=== PATIENT | female | born 1950 | race Caucasian/White ===

== ENCOUNTER → 2020-12-10 08:19 | Outpatient (CLI) | payer MEDICARE, SELFPAY ==
--- NOTE | ~2020-12-10 | MMUS_ITS ---
EXAMINATION: MM diagnostic catarina BI w carlos, US breast LT limited HISTORY: Mastodynia TECHNIQUE: Craniocaudal, mediolateral, and mediolateral oblique 3-D tomosynthesis images of the breas ts were performed and synthetic 2-D images were generated. CAD analysis was submitted and interpreted . High resolution limited left breast ultrasound was performed. COMPARISON: 11/29/2019, 09/21/2018, 09/15/2017 BREAST PARENCHYMAL COMPOSITION: There are scattered areas of fibroglandular density. FINDINGS: MAMMOGRAPHIC FINDINGS: There is no evidence of suspicious mass, calcification, or architectural distortion in either breast to suggest malignancy. There has been no suspicious interval change. No mammographic correlate is id entified for the patient's reported left breast pain. ULTRASOUND: There is no evidence of focal abnormal solid or cystic lesion in the vicinity of the area of the kirsten ent's left breast pain. IMPRESSION: 1. No specific mammographic or sonographic correlate is identified for the patient's left breast pain Further evaluation at this time should be based on clinical assessment. Continued follow-up physical examination is recommended. 2. Recommend routine screening mammography in one year. BI-RADS Category 1: Negative Reviewed, dictated and finalized at location A. GRINDER IMPRESSION: 1. No specific mammographic or sonographic correlate is identified for the kirsten ent's left breast pain Further evaluation at this time should be based on clini elizabeth assessment. Continued follow-up physical examination is recommended. 2. Recommend routine screening mammography in one year. BI-RADS Category 1: Negative
== END ==
PROVIDERS: Visit Provider Obstetrics & Gynecology
DX: N64.4 Mastodynia (principal)
CPT/HCPCS: 76642; 77062; 77066; G0279

== ENCOUNTER 2021-09-23 12:24 | Emergency (ER) | payer MEDICARE, SELFPAY ==
--- NOTE | 2021-09-23 12:27 | ED.EYEPROB ---
HPI - Eye Problem General Chief complaint: Eye Problems Stated complaint: Right Eye Pain Time Seen by Provider: 09/23/21 12:27 Source: patient and RN notes reviewed History of Present Illness HPI Narrative: Patient is a 71-year-old female who presents the urgent care with complaints of redness, drainage and swelling to the right eye. Patient states that it started on Wednesday and worsened on Wednesday. Patient has used [id number] drops without improvement. Denies of any trauma, injury to the eye. Denies of any vision changes. States that she does wear glasses but denies the use of contacts. No other acute complaints. No acute distress noted. Patient aware of the plan of care. Some parts of this dictation were generated by voice recognition software and may contain typographical and/or grammatical inaccuracies. Related Data Allergies Allergy/AdvReac Type Severity Reaction Status Date / Time vaccine adjuvant system, Allergy Intermediate Swelling Verified 06/19/19 06:40 AS01B liposomal varicella-zoster virus Allergy Intermediate Swelling Verified 06/19/19 06:40 glycoprotein E, recombinant Review of Systems Review of Systems: CONSTITUTIONAL: Denies fever, chills, or sweats. EYES: Reports of redness, swelling and drainage from the right eye without vision change ENT: Denies rhinorrhea, congestion, sore throat, or otalgia. CARDIOVASCULAR: Denies chest pain, palpitations, or edema. RESPIRATORY: Denies cough or dyspnea. GASTROINTESTINAL: Denies abdominal pain, nausea, vomiting, or diarrhea. GENITOURINARY: Denies dysuria or hematuria. SKIN: Denies rash or itching. MUSCULOSKELETAL: Denies back pain, joint pain, or myalgia. NEUROLOGIC: Denies headache, numbness, or weakness. All other systems reviewed are negative, except as documented in HPI. [facility] Family History Family History (Updated 09/20/18 @ 10:47 by DOCTOR UNKNOWN) Mother Family history of malignant neoplasm of cervix Family history of malignant neoplasm of ovary Social History Social History Smoking status: Never smoker Second hand tobacco smoke exposure: No Alcohol intake: current Comments At the time of my signature, I reviewed and agree with the nursing past medical, surgical, social, and family history. There is no relevant family history pertinent to the patient complaint. Exam Narrative: GENERAL: This is a well-nourished, well-developed patient, in no apparent distress. HEAD: normocephalic, atraumatic. EYES: PERRL. Sclera clear/white. Vision is grossly intact. Mild to moderate injected conjunctive on the right with clear to yellow drainage. Mild surrounding erythema and slight edema to the lower eyelid of the right eye. Appears to have a draining hordeolum external to the right lower eyelid EARS: External ears normal NOSE: External nose normal with no obvious nasal discharge, nares without redness, no rhinorrhea. THROAT: Mucous membranes moist NECK: Neck supple CARDIOVASCULAR: Regular rate and rhythm without murmurs, gallops, or rubs. RESPIRATORY: Clear to auscultation. Breath sounds equal bilaterally. No wheezes, rales, or rhonchi. SKIN: warm, intact with no suspicious lesions or rash, good texture and turgor. NEURO: awake, alert, and oriented to person, place and time. There were no obvious focal neurologic abnormalities. EXTREMITIES: No clubbing, cyanosis, or edema. Course Vital Signs Vital signs: Vital Signs Temperature 97.7 F 09/23/21 12:35 Pulse Rate 85 09/23/21 12:35 Respiratory Rate 16 09/23/21 12:35 Blood Pressure 156/84 H 09/23/21 12:35 Pulse Oximetry 99 09/23/21 12:35 Temperature 97.7 F 09/23/21 12:40 Pulse Rate 85 09/23/21 12:40 Respiratory Rate 16 09/23/21 12:40 Blood Pressure 156/84 H 09/23/21 12:40 Pulse Oximetry 99 09/23/21 12:40 Reviewed-patient is informed that they may have pre-hypertension or hypertension based on a blood pressure reading in the department. I recommend
[2021-09-23 12:35] VITALS: BP 156/84; PULSE 85; RESP 16; TEMP 36.5; O2SAT 99
[2021-09-23 12:40] VITALS: BP 156/84; PULSE 85; RESP 16; TEMP 36.5; O2SAT 99
== END 2021-09-23 12:48 | disposition home or self-care (01) ==
PROVIDERS: Emergency Provider Nurse Practitioner Family; PCP Family Medicine
DX: L03.213 Periorbital cellulitis (principal); H00.012 Hordeolum externum right lower eyelid
CPT/HCPCS: 99213; G0463

== ENCOUNTER 2022-01-19 13:30 | Outpatient (RCR) | payer MEDICARE, SELFPAY ==
--- NOTE | 2021-11-28 10:49 | PTOPEVAL ---
Thank you for referring Jerrica Ramos to [facility].? The patient is scheduled to be seen for therapy? 2 x/week for 6 weeks. Please review, sign, date and return this plan of care DARWIN. I agree with and certify that the following plan of care is medically necessary. Referring Physician Date Attending Provider: Niurka Byers MD Diagnosis left hip pain Onset 04/28 Cause fall Subjective Information She had a fall April 2021 Query Text:As Reported By Patient/ landing on her left side. She Family reports her left leg is not moving out to the side as normally due to pain and restrictions. She reports limitations with ADL's, squatting to end range, movement of left hip, negotiating steps, prolonged sitting or moving in bed. She is trying to stretch to improve range, walking with good weather, or plays golf. Pain Assessment Left Hip(s) Reported Pain Level 0 Pain Description Aching,Tightness Pain Frequency Chronic Lowest Pain Intensity 0 Greatest Pain Intensity 5 Pain Aggravating Factors ADL's,Bending,Prolonged Position,Sitting,Stair Climbing Lower Extremity Range of Motion General Lower Extremity Range of Motion Gross Lower Extremity Range of Motion right hip abd: 35 dg, left hip Comments abd: 20 dg Lower Extremity Muscle Strength Testing General Lower Extremity Strength Gross Lower Extremity Strength right hip flex: 3/5, hip ext: 4/5, abduction: 3/5 Hip Strength Left Hip Flexion Strength 3 Fair Hip Extension Strength 4- Good - Hip Abduction Strength 3+ Fair + Knee Strength Left Knee Flexion Strength 5 Normal Knee Extension Strength 4+ Good + Muscle Length Testing Two-Joint Hip Flexor Shortened Muscles Short (R) Iliopsoas,Short (L) Iliopsoas,Short (R) Rectus Femoris,Short (L) Rectus Femoris Piriformis w/Hip Flexion >90 Degrees (R) Mild Tightness,(L) Severe Tightness Right Prone Hip Internal Rotator Length 30 (degrees) Left Prone Hip Internal Rotator Length ( 15 degrees) Right Prone Hip External Rotator Length 50 (degrees) Left Prone Hip External Rotator Length ( 50 degrees) Left Hamstring Length
--- NOTE | 2021-12-29 11:53 | PTOPEVAL ---
Physical Therapy Progress Note Thank you for referring Jerrica Ramos to [facility].? Jerrica is progressing towards her therapy goals with improved pain, strength and joint motion. See summary below for detailed progress. The patient is scheduled to be seen for therapy?2 x/week for 3 weeks. Please review, sign, date and return this plan of care DARWIN. I agree with and certify that the following plan of care is medically necessary. Referring Physician Date Attending Provider: Niurka Byers MD Problem Diagnosis left hip pain Onset 04/28 Cause fall Additional Evaluation Detail She had a fall April 2021 landing on her left side. Subjective Information Reports improved hip range and Query Text:As Reported By Patient/ ability to bring leg up for Family donning shoes. She is able to get in/out of the car better. Improved ability to squating to end range and negoitating steps. She has been limited with her distance walking due to weather. She has tried yoga classes, but has difficulty with some of the moves. Pain Assessment Left Hip(s) Reported Pain Level 1 Pain Description Aching Lowest Pain Intensity 0 Greatest Pain Intensity 4 Pain Aggravating Factors ADL's,Bending,Exercise/ Activity,Stair Climbing Lower Extremity Range of Motion General Lower Extremity Range of Motion Gross Lower Extremity Range of Motion right hip abd: 35 dg, left hip Comments abd: 30 dg passive left hip flex: 120 dg Lower Extremity Muscle Strength Testing General Lower Extremity Strength Gross Lower Extremity Strength right hip flex: 4+/5, hip ext: 4+/5, abduction: 3+/5 Hip Strength Left Hip Flexion Strength 4+ Good + Hip Extension Strength 4+ Good + Hip Abduction Strength 4- Good - Knee Strength Left Knee Flexion Strength 5 Normal Knee Extension Strength 5 Normal Muscle Length Testing Muscle Length Testing Two-Joint Hip Flexor Shortened Muscles Short (R) Iliopsoas,Short (L) Iliopsoas,Short (R) Rectus Femoris,Short (L) Rectus Femoris,Short (R) Ilial Tib Band,Short (L) Ilial Tib Band Right Prone Hip Internal Rotator Length 25 (degrees) Left Prone Hip Internal Rotator Length ( 20 degrees) Palpation Assessment Palpation cont moderate to severe
--- NOTE | 2022-01-02 12:06 | PCPTNOTE ---
Patient called to cancel appointment this date due to weather related concern.
--- NOTE | 2022-01-19 14:23 | PTOPEVAL ---
Physical Therapy Discharge Summary Thank you for referring Jerrica Ramos to [facility].?Jerrica has attended 14 therapy visits to address hip pain and LE limitations. She demonstrates improved pain, function, strength and joint motion. She has partially achieved her therapy goals at this time. She has reached maximal potential with skilled therapy services at this time. Will DC skilled PT services. Please review, sign, date and return this discharge summary DARWIN. I agree with and certify that the following plan of care is medically necessary. Referring Physician Date Attending Provider: Niurka Byers MD Diagnosis left hip pain Onset 04/28 Cause fall Additional Evaluation Detail She had a fall April 2021 landing on her left side. Subjective Information Reports improved hip range Query Text:As Reported By Patient/ for donning shoes with only Family mild discomfort. She is able to get in/out of the car easier without increased pain. Improved ability to squating to end range and negoitating steps. Squatting and steps are more limited by knee pain. She has been able to [place] walking without limitations. She is preston yoga without increased pain. Pain Assessment Left Hip(s) Reported Pain Level 0 Pain Description Aching,Tightness Lowest Pain Intensity 0 Greatest Pain Intensity 1 Pain Aggravating Factors ADL's,Stair Climbing Lower Extremity Range of Motion General Lower Extremity Range of Motion Gross Lower Extremity Range of Motion right hip abd: 35 dg, left hip Comments abd: 30 dg Lower Extremity Muscle Strength Testing General Lower Extremity Strength Gross Lower Extremity Strength right hip flex: 4-/5, hip ext: 4+/5, abduction: 3+/5 Hip Strength Left Hip Flexion Strength 4- Good - Hip Extension Strength 4+ Good + Hip Abduction Strength 4- Good - Knee Strength Left Knee Flexion Strength 5 Normal Knee Extension Strength 5 Normal Muscle Length Testing Muscle Length Testing Two-Joint Hip Flexor Shortened Muscles Short (R) Iliopsoas,Short (L) Iliopsoas,Short (R) Rectus Femoris,Short (L) Rectus Femoris,Short (R) Ilial Tib Band,Short (L) Ilial Tib Band Piriformis w/Hip Flexion >90 Degrees (R) Mild Tightness,(L) Moderate Tightness Right Prone Hip Internal Rotator Length 20 (degrees) Left Prone Hip Internal Rotator Length (
== END 2022-01-20 11:12 | disposition home or self-care (01) ==
LOC: ANHPT 13:30
PROVIDERS: PCP Family Medicine; Visit Provider Family Medicine
DX: M25.552 Pain in left hip (principal)
CPT/HCPCS: 97110; 97112; 97162

== ENCOUNTER 2022-07-06 09:26 | Outpatient (CLI) | payer MEDICARE, SELFPAY ==
--- NOTE | ~2022-07-06 | MM_ITS ---
EXAMINATION: MM screening catarina BI w carlos HISTORY: Screening mammogram, family history of breast cancer in her sister. TECHNIQUE: Craniocaudal and mediolateral oblique 3-D tomosynthesis images were obtained and synthetic 2-D images were generated. CAD analysis was submitted and interpreted. COMPARISON: 12/10/2020, 11/27/2019, 09/11/2018 BREAST PARENCHYMAL COMPOSITION: There are scattered areas of fibroglandular density. FINDINGS: RIGHT BREAST: There is a possible mass in the posterior third of the lower inner breast. LEFT BREAST: There is no suspicious mass, calcification, or architectural distortion to suggest malig xavi. There has been no significant interval change. IMPRESSION: 1. Possible right breast mass. 2. Additional mammographic views and possible breast ultrasound are recommended. BI-RADS Category 0: Incomplete: Needs additional imaging evaluation. Reviewed, dictated and finalized at location A. IMPRESSION: 1. Possible right breast mass. 2. Additional mammographic views and possible breast ultrasound are recommended . BI-RADS Category 0: Incomplete: Needs additional imaging evaluation.
== END 2022-07-06 09:27 | disposition home or self-care (01) ==
LOC: ANHIMG 09:29
PROVIDERS: PCP Family Medicine; Visit Provider Obstetrics & Gynecology
DX: Z12.31 Encounter for screening mammogram for malignant neoplasm of breast (principal); R92.8 Other abnormal and inconclusive findings on diagnostic imaging of breast
CPT/HCPCS: 77063; 77067

== ENCOUNTER → 2022-08-05 09:41 | Outpatient (CLI) | payer MEDICARE, SELFPAY ==
--- NOTE | ~2022-08-05 | DEXA_ITS ---
Bone Density Report Name: KRANTHI JONES Age: 71 Sex: Female Ethnicity: White Date of : 1950 Indication: postmenopausal; screening for osteoporosis; height loss; Referring Provider: Rosi Flanagan Study: Bone densitometry was performed. Exam Date: August 05, 2022 Accession number: [id number] Bone Density: Region BMD T-score Z-score Classification AP Spine (L1-L4) 0.804 -2.2 0.0 Osteopenia Femoral Neck (Left) 0.566 -2.6 -0.7 Osteoporosis Total Hip (Left) 0.759 -1.5 0.1 Osteopenia Femoral Neck (Right) 0.581 -2.4 -0.6 Osteopenia Total Hip (Right) 0.796 -1.2 0.4 Osteopenia Total Hip Mean 0.778 -1.4 0.3 Osteopenia World Health Organization criteria for BMD impression classify patients as: Normal (T-score at or above -1.0), Osteopenia (T-score between -1.0 and -2.5), or Osteoporosis (T-score at or below -2.5). 10-year Fracture Risk: FRAX not reported because: Some T-score for Spine Total or Hip Total or Femoral Neck at or below -2.5 Clinical Information Provided by Patient: Has used the following medications: Vitamin D Patient maximum height was 61.5 Menopause Age: 56 Drinks caffeinated beverages Onset of menses at age 13 Number of children 4 Impression: The patient has osteoporosis, based on the Left Femoral Neck T-score. Discussion: INCREASED RISK OF FRACTURE. BONE DENSITY IS UNDESIRABLY LOW AT ONE OR MORE SKELETAL SITES, CONSISTENT WITH POSTMENOPAUSAL OSTEOPOROSIS. This patient's lowest T-score meets the World Health Organization's (WHO) criteria for osteoporosis at one or more sites (T-score -2.5 or below). In untreated patients, the risk of osteoporotic fracture increases approximately two-fold for each 1.0 SD decrease in T-score. Low bone density is not the only risk factor for fracture; also consider factors such as patient's age, frailty or poor health, risk of falling, risk of injury, previous osteoporotic fracture, family history of osteoporosis, cigarette smoking, low body weight, etc. Not everyone with low bone mineral density has osteoporosis; osteomalacia and other metabolic bone disorders should also be considered. Patients who have osteoporosis should be evaluated for specific diseases and conditions (secondary causes) that may cause or contribute to bone loss. The [place] [employer]ocrinologists (AACE) and National Osteoporosis Foundation (NOF) recommend pharmacologic intervention for all postmenopausal women whose T-score is in this range. The patient should follow a healthful lifestyle (good nutrition with adequate calcium and vitamin D, and appropriate weight-bearing exercise). Follow-Up: Consider a repeat BMD and Vertebral Fracture Assessment (VFA) exam in 2 years or sooner if medically necessary, to reassess this patient's status. Reported by: SARAH castorena
== END ==
PROVIDERS: PCP Family Medicine; Visit Provider Obstetrics & Gynecology
DX: Z78.0 Asymptomatic menopausal state (principal); M85.89 Other specified disorders of bone density and structure, multiple sites; M81.0 Age-related osteoporosis without current pathological fracture
CPT/HCPCS: 77080

== ENCOUNTER 2022-08-11 12:19 | Outpatient (CLI) | payer MEDICARE, SELFPAY ==
--- NOTE | ~2022-08-11 | MMUS_ITS ---
EXAMINATION: MM diagnostic catarina RT w carlos, US breast RT limited HISTORY: Possible right breast mass TECHNIQUE: Additional 3-D tomosynthesis images of the right breast were performed and synthetic 2-D i mages were generated. CAD analysis was submitted and interpreted. High resolution limited right breas t ultrasound was performed. COMPARISON: 07/06/2022, 12/10/2020, 11/29/2019 BREAST PARENCHYMAL COMPOSITION: There are scattered areas of fibroglandular density. FINDINGS: MAMMOGRAPHIC FINDINGS: There is subtle architectural distortion in the middle/posterior third of the breast at the 4:00 loca tion 8 cm from the nipple. ULTRASOUND: There is no evidence of focal abnormal solid or cystic mass in the vicinity of the finding in questio n. IMPRESSION: 1. Right breast architectural distortion without definite sonographic correlate. 2. Given the subtle appearance on 2-D images, tomosynthesis guided biopsy is recommended. BI-RADS category 4, suspicious findings. Reviewed, dictated and finalized at location A. IMPRESSION: 1. Right breast architectural distortion without definite sonographic correlate . 2. Given the subtle appearance on 2-D images, tomosynthesis guided biopsy is re commended. BI-RADS category 4, suspicious findings.
== END 2022-08-11 12:20 | disposition home or self-care (01) ==
PROVIDERS: PCP Family Medicine; Visit Provider Obstetrics & Gynecology
DX: R92.8 Other abnormal and inconclusive findings on diagnostic imaging of breast (principal)
CPT/HCPCS: 76642; 77061; 77065; G0279

== ENCOUNTER 2025-05-31 05:46 | Day surgery (SDC) | payer MEDICARE, SELFPAY ==
[2025-05-23 08:13] VITALS: BMI 25.6
--- OUTSIDE RECORDS SUMMARY | 2025-05-31 06:05 | XMS_ITS | Encounter Summary ---
Author Organization [facility] Healthcare Address [address] [place] [address] Care Team Providers Care Slot Key Person Name Role Phone Saurabh Izaguirre MD Primary Care Provider [phone]- [phone] Reason for Visit * Diagnostic Imaging (Routine) - Closed Specialty Diagnoses / Procedures Referred By Jamie jenkins Referred To Contact Procedures Breast Imaging Diagnostic Outside Reference Breast Imaging Screening Outside Reference Irina Aguiar NP Phone: tel: fax: Referral ID Status Reason Start Date Expiration Date Visits Re quested Visits Authorized [id number] Closed 09/04/2022 10/04/2023 1 1 Encounter Details Date Type Department Care Team (Late st Contact Info) Description 12/10/2020 Hospital Encounter [facility] [address] [place] [id number] Social History Tobacco Use Types Packs/Day Years Used Date Smoking Tobacco: Never Smokeless Tobacco: Never Alcohol Use Standard Drinks/Week Comments Yes 0 (1 standard drink = 0.6 oz pur e alcohol) Social Connection and Isolat ion Panel [NHANES] Answer Date Recorded In a typical week, how many times do you talk on the phone with family, friends, or neighbors? More than three times a week 08/05/2023 How often do you get togethe r with friends or relatives? Twice a week 08/05/2023 How often do you attend [facility] or jainism services? More than 4 times per year 08/05/2023 Do you belong to any clubs o r organizations such as jainism groups, unions, fraternal or athletic groups, or school groups? Yes 08/05/2023 How often do you attend meet ings of the clubs or organizations you belong to? More than 4 times per year 08/05/2023 Are you , , di vorced, , never , or living with a partner? 08/05/2023 AUDIT-C Answer Date Recorded Q1: How often do you have a drink containing alc ohol? 2-4 times a month 11/04/2022 Q2: How many drinks containi ng alcohol do you have on a typical day when you are drinking? 1 or 2 11/04/2022 Q3: How often do you have si x or more drinks on one occasion? Never 11/04/2022 Overall Financial Resource Strain (CARDIA) Answe r Date Recorded How hard is it for you to pa y for the very basics like food, housing, medical care, and heating? Not very hard 08/05/2023 PHQ-2 Answer Date Recorded Patient Health Questionnaire-2 Score 0 08/05/2023 [facility] - Occupational Stress Questionnaire Answer Date Recorded Do you feel stress - tense, restless, nervous, or anxious, or unable to sleep at night because your mind is troubled all the time - these days? Only a little 08/05/2023 Exercise Vital Sign Answer Date Recorde d On average, how many days pe r week do you engage in moderate to strenuous exercise (like a brisk walk)? 2 days 08/05/2023 On average, how many minutes do you engage in exercise at this level? 40 min 08/05/2023 Hunger Vital Sign Answer Date Recorded Within the past 12 months, y ou worried that your food would run out before you got the money to buy more. Never true 08/05/20 23 Within the past 12 months, t he food you bought just didn't last and you didn't have money to get more. Never true 08/05/2023 PRAPARE - Transportation Answer Date Re corded In the past 12 months, has l ack of transportation kept you from medical appointments or from getting medications? No 07/10 In the past 12 months, has l ack of transportation kept you from meetings, work, or from getting things needed for daily living? No 08/05/2023 Housing Stability Vital Sign Answer Demetri e Recorded In the last 12 months, was t here a time when you were not able to pay the mortgage or rent on time? No 08/05/2023 In the last 12 months, how many places have you lived? 1 08/05/2023 In the last 12 months, was t here a time when you did not have a steady place to sleep or slept in a care home (including now)? No 08/05/2023 Comments Unknown Sex and Gender Information Value Date Recorded Sex Assigned at Not on file Legal Sex Female 3:26 AM DIRECTOR DERMATOLOGY Gender Identity Not on file Sexual Orientation Not on file documented as of this encounter Functional Status * Audit-C Score Answer Date of Assessment Author 2 11/04/2022 7:20 AM DIRECTOR DERMATOLOGY Monica Allen RN * Question Answer Date of Assessment Author Q1: How often do you have a drink containing alcohol? 2-4 times a month 11/04/2022 7:20 AM DIRECTOR DERMATOLOGY Emily Allen RN Q2: How many drinks containing alcohol do you have on a typical day when you are drinking? 1 or 2 11/04/2022 7:20 AM DIRECTOR DERMATOLOGY Emily Allen RN Q3: How often do you have six or more drinks on one occasion? Never 11/04/2022 7:20 AM DIRECTOR DERMATOLOGY Emily Allen RN * Over the past 2 weeks, how often have you been bothered by any of the following problems? Question Answer Date of Assessment Author Patient Health Questionnaire-2 Score 0 08/05/2023 10:15 AM CDT Interface, Amb ulatory Doc Flowsheet In * Little interest or pleasure in doing things Answer Date of Assessment Author Not at all 08/05/2023 10:15 AM CDT Interfac e, Ambulatory Doc Flowsheet In * Feeling down, depressed, or hopeless Answer Date of Assessment Author Not at all 08/05/2023 10:15 AM CDT Interfac e, Ambulatory Doc Flowsheet In documented as of this encounter Plan of Treatment Not on file documented as of this encounter Procedures Procedure Name Priority Date/Time Associated Diagnosis Comments BREAST IMAGING MG DIAGNOSTIC OUTSIDE REFERENCE Routine 12/10/2020 12:00 AM DIRECTOR DERMATOLOGY documented in this encounter Results * Breast Imaging Diagnostic Outside Reference (12/10/2020 12:00 AM DIRECTOR DERMATOLOGY) Anatomical Region Laterality Modality Breast Mammography Impressions 09/04/2022 12:50 PM CDT These images are for Reference purposes only and have not been reviewed by [facility] Radiology. There will be no report generated by a [facility] Radiologist. Narrative 09/04/2022 12:50 PM CDT EXAMINATION: Images For Reference Purposes Only Irina Aguiar WHEELCHAIR RENTAL CLERK IMG MAMMO PROCEDURES [place] [facility] Result - Final documented in this encounter Visit Diagnoses Not on filedocumented in this encounter Care Teams Slot Key Person Relationship Specialty Start Date End Date Saurabh Izaguirre MD [address] [place] [address] PCP - General 03/05/15 05/27/22 documented as of this encounter
--- OUTSIDE RECORDS SUMMARY | 2025-05-31 06:05 | XMS_ITS | Encounter Summary ---
Author Organization [facility] Healthcare Address [address] [place] [address] Care Team Providers Care Aquatic Life Laborer Name Role Phone Saurabh Izaguirre MD Primary Care Provider [phone]- [phone] Reason for Visit * Diagnostic Imaging (Routine) - Closed Specialty Diagnoses / Procedures Referred By Jamie jenkins Referred To Contact Procedures Breast Imaging Screening Outside Reference Irina Aguiar NP Phone: tel: fax: Referral ID Status Reason Start Date Expiration Date Visits Re quested Visits Authorized [id number] Closed 09/04/2022 10/04/2023 1 1 Encounter Details Date Type Department Care Team (Late st Contact Info) Description 11/29/2019 Hospital Encounter [facility] [address] [place] [id number] Social History Tobacco Use Types Packs/Day Years [...] week 08/05/2023 How often do you attend [facility] or scientologist services? More than 4 times per year 08/05/2023 Do you belong to any clubs o r organizations such as faith groups, unions, fraternal or athletic groups, or [...] Recorded Patient Health Questionnaire-2 Score 0 08/05/2023 [facility] - Occupational Stress [...] place to sleep or slept in a retirement (including now)? No 08/05/2023 Comments Unknown Sex and Gender Information Value Date Recorded Sex Assigned at Not on file Legal Sex Female 3:26 AM MOTHER BABY RN Gender Identity Not on file Sexual Orientation Not on file documented as of this encounter Functional Status * Audit-C Score Answer Date of Assessment Author 2 11/04/2022 7:20 AM MOTHER BABY RN Monica Allen RN * Question Answer Date of Assessment Author Q1: How often do you have a drink containing alcohol? 2-4 times a month 11/04/2022 7:20 AM MOTHER BABY RN Emily Allen RN Q2: How many drinks containing alcohol do you have on a typical day when you are drinking? 1 or 2 11/04/2022 7:20 AM MOTHER BABY RN Emily Allen RN Q3: How often do you have six or more drinks on one occasion? Never 11/04/2022 7:20 AM MOTHER BABY RN Emily Allen RN * Over the past [...] Date/Time Associated Diagnosis Comments BREAST IMAGING MG SCREENING OUTSIDE REFERENCE Routine 11/29/2019 12:00 AM MOTHER BABY RN documented in this encounter Results * Breast Imaging Screening Outside Reference (11/29/2019 12:00 AM MOTHER BABY RN) Impressions [facility] - 09/04/2022 12:49 PM CDT These images are for Reference purposes only and have not been reviewed by [facility] Radiology. There will be no report generated by a [facility] Radiologist. Narrative [facility] - 09/04/2022 12:49 PM CDT EXAMINATION: Images For Reference Purposes Only us Irina Aguiar SHALE PLANER OPERATOR IMG MAMMO PROCEDURES Fin al Result [facility] documented in this encounter Visit Diagnoses Not on filedocumented in this encounter Care Teams Aquatic Life Laborer Relationship Specialty Start Date End Date Saurabh Izaguirre MD [address] [place] [address] PCP - General 03/05/15 05/27/22 documented as of this encounter
--- OUTSIDE RECORDS SUMMARY | 2025-05-31 06:06 | XMS_ITS | Encounter Summary ---
Author Organization [facility] Healthcare Address [address] [place] [address] Care Team Providers Care Packing Machine Operator Name Role Phone Saurabh Izaguirre MD Primary Care Provider +1- [phone] Reason for Visit * Diagnostic Imaging (Routine) - Closed Specialty Diagnoses / Procedures Referred By Jamie jenkins Referred To Contact Procedures Breast Imaging Screening Outside Reference Irina Aguiar NP Phone: tel: fax: Referral ID Status Reason Start Date Expiration Date Visits Re quested Visits Authorized [id number] Closed 09/04/2022 10/04/2023 1 1 Encounter Details Date Type Department Care Team (Late st Contact Info) Description 07/27/2016 Hospital Encounter [facility] [address] [place] [id number] Social History Tobacco Use Types Packs/Day Years [...] week 08/05/2023 How often do you attend [facility] or samaritan services? More than 4 times per year 08/05/2023 Do you belong to any clubs o r organizations such as synagogue groups, unions, fraternal or athletic groups, or [...] Recorded Patient Health Questionnaire-2 Score 0 08/05/2023 [facility] - Occupational [...] place to sleep or slept in a [facility] (including now)? No 08/05/2023 Comments Unknown Sex and Gender Information Value Date Recorded Sex Assigned at Not on file Legal Sex Female 3:26 AM EXTRUSION DIE REPAIR MANAGER Gender Identity Not on file Sexual Orientation Not on file documented as of this encounter Functional Status * Audit-C Score Answer Date of Assessment Author 2 11/04/2022 7:20 AM EXTRUSION DIE REPAIR MANAGER Monica Allen RN * Question Answer Date of Assessment Author Q1: How often do you have a drink containing alcohol? 2-4 times a month 11/04/2022 7:20 AM EXTRUSION DIE REPAIR MANAGER Emily Allen RN Q2: How many drinks containing alcohol do you have on a typical day when you are drinking? 1 or 2 11/04/2022 7:20 AM EXTRUSION DIE REPAIR MANAGER Emily Allen RN Q3: How often do you have six or more drinks on one occasion? Never 11/04/2022 7:20 AM EXTRUSION DIE REPAIR MANAGER Emily Allen RN * Over the past [...] BREAST IMAGING MG SCREENING OUTSIDE REFERENCE Routine 07/27/2016 12:00 AM CDT documented in this encounter Results * Breast Imaging Screening Outside Reference (07/27/2016 12:00 AM CDT) Impressions [facility] - 09/04/2022 12:40 PM CDT These images are for Reference purposes only and have not been reviewed by [facility] Radiology. There will be no report generated by a [facility] Radiologist. Narrative [facility] - 09/04/2022 12:40 PM CDT EXAMINATION: Images For Reference Purposes Only us Irina Aguiar WAREHOUSE ASSISTANT IMG MAMMO PROCEDURES Fin al Result [facility] documented in this encounter Visit Diagnoses Not on filedocumented in this encounter Care Teams Packing Machine Operator Relationship Specialty Start Date End Date Saurabh Izaguirre MD [address] [place] [address] PCP - General 03/05/15 05/27/22 documented as of this encounter
--- OUTSIDE RECORDS SUMMARY | 2025-05-31 06:06 | XMS_ITS | Referral Summary ---
Author Organization [facility] [address] Address [address] [place] [id number] Care Team Providers Care Accessibility Lift Technician Name Role Phone Niurka Byers MD Primary Care Provider [phone] Rosi Flanagan MD Unavailable [phone] Edward Medina MD Unavailable Janet Shaikh MD PhD Unavaila ble Areli Michel MD Unavailable [phone] Encounters Date Type Department Care Team Description 03/15/2025 2:30 PM CDT Office Visit [facility] Radiation Oncology [address] [place] [phone] Areli Michel MD 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 breast of female, estrogen receptor positive (HCC) (Primary Dx) from Last 3 Months Allergies No known active allergies Medications alendronate (FOSAMAX) 70 mg tablet Take 1 tablet (70 mg total) by mouth once a week 08/31/2022 Active calcium carbonate-vitami n D3 2,500 mg (1,000 mg elemental)-800 unit tablet Take by mouth Active anastrozole (ARIMIDEX) 1 mg tabletIndication s: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 breast of female, estrogen receptor positive (HCC) TAKE 1 TABLET(1 MG) BY MOUTH DAILY 90 tablet 3 04/03/2025 Active Active Problems Problem Noted Date Diagnosed Date Encounter for follow-up exam ination after completed treatment for malignant neoplasm 02/03/2023 Personal history of malignant neoplasm of breast 02/03/2023 Personal history of irradiation 02/03/2023 keno terminal operator current use of aromatase inhibitor Malignant neoplasm of right female breast 2021 Cancer Staging:Pathologic stage from 11/04/2022: pT1b, pN0(sn), cM0, ER+, MO-, HER2- - Unsigned Overview (10/22/2022): Added automatically from request for surgery [id number] Abnormal mammogram 09/23/2022 Hyperlipidemia 03/05/2015 Overview (02/18/2017): Hyperlipidemia Immunizations Immunization Administration Dates Next Due Influenza, Quadrivalent, Spl it, Preservative Free, Intramuscular 11/18/2013 Influenza, Trivalent, IM (MDV) 09/05/2012 TD Preservative Free 08/13/2011,04/25/2002 ZOSTER LIVE 11/22/2012 Social History Tobacco Use Types Packs/Day Years Used Date Smoking Tobacco: Never Smokeless Tobacco: Never Tobacco Cessation:Counseling Given: Not Answered Alcohol Use Standard Drinks/Week Comments Yes 0 [...] week 08/05/2023 How often do you attend chur ch or synagogue services? More than 4 times per year 08/05/2023 Do you belong to any clubs o r organizations such as moravian groups, unions, fraternal or athletic groups, or [...] Recorded Patient Health Questionnaire-2 Score 0 08/05/2023 [facility] - Occupational Stress Questionnaire Answer Date Recorded [...] place to sleep or slept in a mcfp (including now)? No 08/05/2023 Comments Unknown Sex and Gender Information Value Date Recorded Sex Assigned at Not on file Legal Sex Female 3:26 AM SVP OF DIGITAL Gender Identity Not on file Sexual Orientation Not on file Last Filed Vital Signs Vital Sign Reading Time Taken Comments Blood Pressure 151/61 03/15/2025 2:28 PM CDT Pulse 82 03/15/2025 2:28 PM CDT Temperature 36.5 C (97.7 F) 03/15/2025 2:28 PM CDT Respiratory Rate 18 03/15/2025 2:28 PM CDT Oxygen Saturation 98% 03/15/2025 2:28 PM CDT Inhaled Oxygen Concentration - - Weight 61.9 kg (136 lb 8 oz) 03/15/2025 2:28 PM CDT Height 152.4 cm (5') 02/15/2025 2:52 PM CDT Body Mass Index 26.66 02/15/2025 2:52 PM CDT Plan of Treatment Not on file Medical Devices Implanted Type Area Water Treatment Technician Device Identifier Shelf Expiration Date Model / Serial / Lot [employer] Needle Localization Bad Axe Nitinol Stainless Steel J Curve L10cm Od20 Ga Breast Reposition 2 Part Stabilizer Wire Sterile Disposable [id number] - [id number] Implanted:Qty: 1 on 11/04/2022 at [facility] Wire [employer] [id number] 09/24/2025 [id number] / / [id number] Bard Per[employer] V[employer] Ultraclip Bard 17ga 10cm 2 Trigger Permanent Ultrasound [id number] - [id number] Implanted:Qty: 1 on 09/23/[address] [facility] Right: Breast [employer] [id number] / / Procedures Procedure Name Priority Date/Time Associated Diagnosis Comments DEXA AXIAL SKELETON BONE DENSITY 1 OR MORE SITES Schedule Routine, Read Routine (OP Routine) 08/01/2024 10:14 AM CDT 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 breast of female, estrogen receptor positive (HCC) keno terminal operator (current) use of aromatase inhibitors DIAGNOSTIC MAMMOGRAM BILATERAL W DANNY Schedule Routine, Read Routine (OP Routine) 06/22/2024 3:00 PM CDT History of partial mastectomy of right breast 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 breast of female, estrogen receptor positive (HCC) Abnormal mammogram Mass of right breast, unspecified quadrant Hx of lymph node excision from Last 3 Months or Most Recently Relevant to Health Maintenance Results * Dexa Axial Skeleton Bone Density 1 or 2 Site (08/01/2024 10:14 AM CDT) Anatomical Region Laterality Modality Body N/A Other 08/01/2024 7:43 PM CDT Narrative 08/01/2024 7:44 PM CDT EXAM DESCRIPTION: DEXA AXIAL SKELETON BONE DENSITY 1 OR MORE SITES REASON FOR STUDY: 73 y/o year old F with given history of: keno terminal operator AI use Screening Hx of right breast cancer 2021 Hx of radiation therapy and currently takes anastrozole Post menopausal Water Treatment Technician/Model: Location SL (S/N [id number]) CLINICAL INFORMATION: Current height: 61 inches Maximum height: 61 inches Weight: 132 pounds Risk factors: Postmenopausal, secondary osteoporosis, cancer COMPARISON: None available FINDINGS: AP LUMBAR SPINE L1-L4: Total BMD is 0.797 g/cm2 T-score is -2.3 LEFT HIP: Total BMD is 0.734 g/cm2 T-score is -1.7 Femoral neck BMD is 0.534 g/cm2 T-score is -2.8 FRAX: FRAX not reported due to T-scores of hip, femoral neck and/or spine being at or below -2.5 (Osteoporosis). IMPRESSION: Osteoporosis. REFERENCE: Bone mineral density: T-Score: Normal (T-score above or = -1.0) Low bone mass (T-score between -1.0 and -2.5) replaces the previously used term osteopenia Osteoporosis (T-score = or below -2.5) Z-Score: Within the expected range for age (Z-score above -2.0) Below the expected range for age (Z-score is -2.0 or below) Please see below follow up recommendations. Medical evaluation for secondary causes of low bone mineral density may be appropriate. FRAX is a World Health Organization validated fracture risk assessment tool that calculates a person's 10 year probability of a major osteoporosis related fracture and hip fracture. According to the National Osteoporosis Foundation guidelines, postmenopausal women and men age 50 or older with low bone mass and a 10 year probability of a major osteoporosis related fracture = or greater than 20% or a 10 year probability of a hip fracture = or greater than 3% should be considered for pharmacological treatment for the prevention of osteoporosis. For further information, including treatment recommendations, please refer to the 2019 ISCD Official Positions (http://www.iscd.org) and the NOF's Clinician's Guide to Prevention and Treatment of Osteoporosis (http://www.nof.org/professionals/clinical-guidelines) THIS IS AN ELECTRONICALLY VERIFIED FINAL REPORT 08/01/2024 7:44 PM - Electronically signed by Brendan Tello M.D. MF: MARIA Report ID: [id number] Reading Location: [place] [address] Procedure Note Brendan Tello MD - 08/01/2024 EXAM DESCRIPTION: DEXA AXIAL SKELETON BONE DENSITY 1 OR MORE SITES REASON FOR STUDY: 73 y/o year old F with given history of: Long termAI use Screening Hx of right breast cancer 2021 Hx of radiation therapy and currently takes anastrozole Post menopausal Water Treatment Technician/Model: Location SL (S/N [id number]) CLINICAL INFORMATION: Current height: 61 inches Maximum height: 61 inches Weight: 132 pounds Risk factors: Postmenopausal, secondary osteoporosis, cancer COMPARISON: None available FINDINGS: AP LUMBAR SPINE L1-L4: Total BMD is 0.797 g/cm2 T-score is -2.3 LEFT HIP: Total BMD is 0.734 g/cm2 T-score is -1.7 Femoral neck BMD is 0.534 g/cm2 T-score is -2.8 FRAX: FRAX not reported due to T-scores of hip, femoral neck and/or spine beingat or below -2.5 (Osteoporosis). IMPRESSION: Osteoporosis. REFERENCE: Bone mineral density: T-Score: Normal (T-score above or = -1.0) Low bone mass (T-score between -1.0 and -2.5) replaces thepreviously used term osteopenia Osteoporosis (T-score = or below -2.5) Z-Score: Within the expected range for age (Z-score above -2.0) Below the expected range for age (Z-score is -2.0 or below) Please see below follow up recommendations. Medical evaluation forsecondary causes of low bone mineral density may be appropriate. FRAX is a World Health Organization validated fracture risk assessmenttool that calculates a person's 10 year probability of a major osteoporosisrelated fracture and hip fracture. According to the National OsteoporosisFoundation guidelines, postmenopausal women and men age 50 or older with low bonemass and a 10 year probability of a major osteoporosis related fracture = or greater than 20% or a 10 year probability of a hip fracture = or greaterthan 3% should be considered for pharmacological treatment for the preventionof osteoporosis. For further information, including treatment recommendations, please referto the 2019 ISCD Official Positions (http://www.iscd.org) and the NOF's Clinician's Guide to Prevention and Treatment of Osteoporosis (http://www.nof.org/professionals/clinical-guidelines) THIS IS AN ELECTRONICALLY VERIFIED FINAL REPORT 08/01/2024 7:44 PM - Electronically signed by Brendan Tello M.D. MF: MARIA Report ID: [id number] Reading Location: [place] [address] Edward Medina MD IMG DXA PROCEDURE S Final Result * Diagnostic Mammogram Bilateral W Danny (06/22/2024 3:00 PM CDT) Anatomical Region Laterality Modality Breast Bilateral Mammography 06/22/2024 3:57 PM CDT Impressions 06/22/2024 3:59 PM CDT 1. No mammographic evidence of malignancy in bilateral breasts. 2. Post surgical changes of right partial mastectomy. OVERALL FINAL ASSESSMENT: BI-RADS Category 2: Benign. RECOMMENDATION: Annual diagnostic mammography is recommended. Dictated by: Tyler Porter D.O. The radiology attending physician has personally reviewed this study, and had reviewed and/or edited this written report and agrees with it. Electronically signed by: Pema Mchugh M.D. Narrative 06/22/2024 3:59 PM CDT EXAMINATION: BILATERAL DIGITAL DIAGNOSTIC MAMMOGRAM INCLUDING CAD AND BILATERAL DIGITAL BREAST TOMOSYNTHESIS HISTORY: 73-year-old female presents for screening diagnostic mammogram status post right breast breast conservation therapy. Patient has a history of right breast invasive ductal carcinoma. COMPARISON: Mammograms 06/17/2023 and dating back to 2014 TECHNIQUE: Full field digital mammographic views of BOTH breasts were performed, including computer aided detection (CAD) and BILATERAL digital breast tomosynthesis (DBT). BREAST PARENCHYMAL COMPOSITION: There are scattered areas of fibroglandular density. MAMMOGRAM FINDINGS: There is no mass, calcification or architectural distortion suggestive of malignancy within EITHER breast. Post surgical changes of right partial mastectomy. Procedure Note Pema Mchugh MD - 06/22/2024 EXAMINATION: BILATERAL DIGITAL DIAGNOSTIC MAMMOGRAM INCLUDING CAD AND BILATERAL DIGITAL BREAST TOMOSYNTHESIS HISTORY: 73-year-old female presents for screening diagnostic mammogram status post right breast breast conservation therapy. Patient has a history of right breast invasive ductal carcinoma. COMPARISON: Mammograms 06/17/2023 and dating back to 2014 TECHNIQUE: Full field digital mammographic views of BOTH breasts were performed, including computer aided detection (CAD) and BILATERAL digital breast tomosynthesis (DBT). BREAST PARENCHYMAL COMPOSITION: There are scattered areas of fibroglandular density. MAMMOGRAM FINDINGS: There is no mass, calcification or architectural distortion suggestive of malignancy within EITHER breast. Post surgical changes of right partial mastectomy. IMPRESSION: 1. No mammographic evidence of malignancy in bilateral breasts. 2. Post surgical changes of right partial mastectomy. OVERALL FINAL ASSESSMENT: BI-RADS Category 2: Benign. RECOMMENDATION: Annual diagnostic mammography is recommended. Dictated by: Tyler Porter D.O. The radiology attending physician has personally reviewed this study, and had reviewed and/or edited this written report and agrees with it. Electronically signed by: Pema Mchugh M.D. Janet Shaikh MD PhD IMG MAMMO PROCEDURES Final Result from Last 3 Months or Most Recently Relevant to Health Maintenance Insurance [employer] SENIOR SUPPLEMENT MEDICARE MEDICARE A[employer] SENIOR SUPPLEMENT MEDICARE AET[employer] SENIOR SUPPLEMENT Care Teams Accessibility Lift Technician Relationship Specialty Start Date End Date Niurka Byers MD PCP - General Family Medicine 05/28/22 Rosi Flanagan MD Referring Physician Obstetrics and Gynecology 08/12/22 Edward Medina MD [address] [facility], [address] [address] Consulting Physician Medical Oncology 11/20/22 Janet Shaikh MD PhD [address] [place] [address] Surgeon Surgical Oncology 11/20/22 Areli Michel MD [address] [facility] RADIATION ONCOLOGY [place] [id number] Radiation Oncologist Radiation Oncology 12/10/22
--- OUTSIDE RECORDS SUMMARY | 2025-05-31 06:06 | XMS_ITS | Encounter Summary ---
Author Organization [facility] Address [address] [place] [address] Care Team Providers Care Activity Therapy Teacher Name Role Phone Saurabh Izaguirre MD Primary Care Provider [phone] Reason for Visit * Diagnostic Imaging (Routine) - Closed Specialty Diagnoses / Procedures Referred By Jamie jenkins Referred To Contact Procedures Breast Imaging Screening Outside Reference Irina Aguiar NP Phone: tel: fax: Referral ID Status Reason Start Date Expiration Date Visits Re quested Visits Authorized [id number] Closed 09/04/2022 10/04/2023 1 1 Encounter Details Date Type Department Care Team (Late st Contact Info) Description 09/15/2017 Hospital Encounter [facility] [address] [place] [address] Social History Tobacco Use Types Packs/Day Years [...] week 08/05/2023 How often do you attend [facility] or caodaism services? More than 4 times per year 08/05/2023 Do you belong to any clubs o r organizations such as adventism groups, unions, fraternal or athletic groups, or [...] Recorded Patient Health Questionnaire-2 Score 0 08/05/2023 [facility] - Occupational Stress [...] place to sleep or slept in a longterm (including now)? No 08/05/2023 Comments Unknown Sex and Gender Information Value Date Recorded Sex Assigned at Not on file Legal Sex Female 3:26 AM WARDROBE SPECIALTY WORKER Gender Identity Not on file Sexual Orientation Not on file documented as of this encounter Functional Status * Audit-C Score Answer Date of Assessment Author 2 11/04/2022 7:20 AM WARDROBE SPECIALTY WORKER Monica Allen RN * Question Answer Date of Assessment Author Q1: How often do you have a drink containing alcohol? 2-4 times a month 11/04/2022 7:20 AM WARDROBE SPECIALTY WORKER Emily Allen RN Q2: How many drinks containing alcohol do you have on a typical day when you are drinking? 1 or 2 11/04/2022 7:20 AM WARDROBE SPECIALTY WORKER Emily Allen RN Q3: How often do you have six or more drinks on one occasion? Never 11/04/2022 7:20 AM WARDROBE SPECIALTY WORKER Emily Allen RN * Over the past [...] BREAST IMAGING MG SCREENING OUTSIDE REFERENCE Routine 09/15/2017 12:00 AM WARDROBE SPECIALTY WORKER documented in this encounter Results * Breast Imaging Screening Outside Reference (09/15/2017 12:00 AM WARDROBE SPECIALTY WORKER) Impressions [facility] - 09/04/2022 12:41 PM CDT These images are for Reference purposes only and have not been reviewed by [facility] Radiology. There will be no report generated by a [facility] Radiologist. Narrative [facility] - 09/04/2022 12:41 PM CDT EXAMINATION: Images For Reference Purposes Only us Irina Aguiar CLINICAL INFORMATICS EDUCATOR IMG MAMMO PROCEDURES Fin al Result [facility] documented in this encounter Visit Diagnoses Not on filedocumented in this encounter Care Teams Activity Therapy Teacher Relationship Specialty Start Date End Date Saurabh Izaguirre MD [address] [place] [address] PCP - General 03/05/15 05/27/22 documented as of this encounter
--- OUTSIDE RECORDS SUMMARY | 2025-05-31 06:06 | XMS_ITS | Encounter Summary ---
Author Organization [facility] Address [address] [place] [address] Phone Care Team Providers Care Cardiology Fellow Name Role Phone Niurka Byers MD Primary Care Provider [phone] Rosi Flanagan MD Unavailable [phone] Edward Medina MD Unavailable Janet Shaikh MD PhD Unavaila ble Areli Michel MD Unavailable [phone] Encounter Details Date Type Department Care Team (Latest Contact Info) Description 07/06/2022 Orders Only [facility] Scanning, Provider Social History Tobacco Use Types Packs/Day Years Used Date Smoking Tobacco: Never Alcohol Use Standard Drinks/Week Comments Yes 0 (1 standard drink = 0.6 oz pur e alcohol) Comments Unknown Sex and Gender Information Value Date Recorded Sex Assigned at Not on file Legal Sex Female 3:26 AM CREW DISPATCHER Gender Identity Not on file Sexual Orientation Not on file documented as of this encounter Plan of Treatment Not on file documented as of this encounter Procedures Procedure Name Priority Date/Time Associated Diagnosis Comments SCAN - RADIOLOGY/IMAGING 07/06/2022 documented in this encounter Results * SCAN - RADIOLOGY/IMAGING (07/06/2022) Anatomical Region Laterality Modality Other us Provider Scanning Final Result documented in this encounter Visit Diagnoses Not on filedocumented in this encounter Care Teams Cardiology Fellow Relationship Specialty Start Date End Date Niurka Byers MD PCP - General Family Medicine 05/28/22 Rosi Flanagan MD Referring Physician Obstetrics and Gynecology 08/12/22 Edward Medina MD [address] [facility], [address] [address] Consulting Physician Medical Oncology 11/20/22 Janet Shaikh MD PhD [address] [place] [address] Surgeon Surgical Oncology 11/20/22 Areli Michel MD [address] [place] [address] Radiation Oncologist Radiation Oncology 12/10/22 documented as of this encounter
--- OUTSIDE RECORDS SUMMARY | 2025-05-31 06:06 | XMS_ITS | Data Portability ---
Author Organization [facility] Address [address] [place] [address] Care Team Providers Care Math And Science Division Chair Name Role Phone GAILKEV Primary Care Provider [phone] Assessment Encounter Date Assessment Date Assessment LastModified by Organization Details LastModified Time 08/31/2022 08/31/2022 We discussed dexa results in depth and diagnosis of osteoporosis on left hip and almost osteoporosis on right hip. will start calcium with vit d. disucssed use of alendronate to prevent further bone loss encouraged weight bearing exercise calcium, vit D, creatinine today will start alendronate weekly. discusse RBA, usage. [email or web address] Not available 08/31/2022 13:51:29 10/07/2022 10/07/2022 Discussed uncertain etiology of the bleeding, need to w/u both US first, if endometrial stripe thin does not need EMB to call PCP re possible rectal bleeding. [email or web address] Not available 10/07/2022 12:21:17 08/02/2023 08/02/2023 healthy female exam/menopause patient declines std testing pap- none further mammogram - per [facility] colonoscopy due next year dexa due next year- at higher risk with anastrozole Encouraged weight bearing exercise and 1500mg daily of Calcium with Vitamin D strongly encouraged to discuss episode of rectal bleeding with PCP, even though has not happened a second time. FU 1 year or prn [email or web address] Not available 08/09/2023 11:56:44 08/09/2024 08/09/2024 Annual gynecological exam performed. Patient will come back in a year unless there are new symptoms. Not available 08/09/2024 14:53:20 Plan of Treatment Reminders Order Date Submit Date Provider Last Modified By Organization Details Last Modified Time Details Appointments None recorded. Lab vitamin D, 25-hydroxy, total, serum 2021 [facility] (Lab), [address], [place], [address], 17:52:28 calcium, ionized + total, serum 2021 [facility] (Lab), [address], [place], [address], 17:52:29 creatinine, serum or plasma 2021 [facility] (Lab), [address], [place], [address], 17:52:28 Referral None recorded. Procedures None recorded. Surgeries None recorded. Imaging US, transvagina l 2021 [email or web address] [place], [facility] [address], [place], [address], 08:16:11 Medication Orders alendronate 70 mg tablet 2021 [email or web address] [id number], [address], [place], [id number], 13:44:08 Patient TargetsNo targets recorded. Patient InstructionsNo instructions recorded. Reason for Referral None Reported. Results Created Date Observation Date Name Description Value Unit Range Abnormal Flag Note LastModifiedBy Organization Detail LastModifiedTime 08/31/2008/31/2022 CREAT ININE , SERUM creatinine 0.67 mg/dL 0.60-1 .30 Not Available [facility] [address], [place], [address], 09/02/2022 17:52:27 08/31/2008/31/2022 CREAT ININE , SERUM egfrcr (CKD-epi 2020) >90 mL/mi n/1.7 3_m2 >=60 Heigh t (ft.) : 4 ft 9 in Heigh t (in.) : 57 Weigh t (lbs) : 143 Not Available [facility] [address] [place], [address], 09/02/2022 17:52:27 08/31/20 22 08/31/2022 VITAM IN D, 25-OH (TOTA L D2/D3 ) vitamin D, 25-hydroxy, total 22.1 NG/mL 30.0-1 00.0 low Sugge stive of Defic iency : <20 ng/mL Sugge stive of Insuf ficie ncy: 20-29 ng/mL Sugge stive of Suffi cienc y: 30-10 0 ng/mL Sugge stive of Toxic ity: >150 ng/mL Not Available [facility] [address] [place], [address], 09/02/2022 17:52:28 08/31/20 22 08/31/2022 CALCI UM, IONIZ ED SERUM calcium, ionized 5.0 mg/dL 4.8-5. 6 Perfo rming Organ izati on Infor jhon n: Site ID: CB Name: [facility] Addre ss: [address] [place] [address] Direc tor: Dwayne gasca M.D. Not Available [facility] [address] [place], [address], 09/02/2022 17:52:29 08/05/20 22 08/05/2022 DEXA No observ ation record ed. [email or web address] [address], [place], [address], 08/10/2022 14:49:02 08/11/2029 0808/11/2022 MAMMO , diagn ostic , unila teral No observ ation record ed. [email or web address] [facility] [address], [place], [address], 08/14/2022 11:07:16 08/11/20 22 08/11/2022 MAMMO , diagn ostic , unila teral No observ ation record ed. [email or web address] [facility] [address], [place], [address], 08/12/2022 11:02:42 10/08/20 22 10/08/2022 US, trans vagin al No observ ation record ed. [email or web address] [place] [address], [place], [address], 10/08/2022 12:55:21 10/08/20 22 10/08/2022 US, trans vagin al No observ ation record ed. [email or web address] [address] [address], [place], [address], 10/09/2022 09:21:23 Result Notes None recorded. Problems Name Problem SNOMED Code Status Onset Date Resolution Date Notes Provider Name and Address Organization Details Recorded Time Screenin g for malignan t neoplasm of colon Completed 201012/03/2020 Special screenin g for malignan t neoplasm s, colon;Pr actice ID: [id number] Rosi Flanagan MD [address], [place], [address], [facility] 12:56:08 Neoplasm of bone [id number] Completed 201112/03/2020 Neoplasm of unspecif ied nature of bone, soft tissue, and skin;Rec orded Elsewher e: No Locat ion: [facility] S ource: EHR Hospitality Job Titles manuel: N Practi ce ID: 0001 Juan J lable Time: 08:45:00 AM Rosi Flanagan MD [address], [place], [address], [facility] 1 12:56:01 Speciali zed medical examinat ion Completed 201212/03/2020 Gynecolo gical Examinat ion;Marvin rded Elsewher e: No Locat ion: [facility] S ource: EHR Hospitality Job Titles manuel: N Practi ce ID: 0001 Juan J lable Time: 01:00:00 PM Rosi Flanagan MD [address], [place], [address], [facility] 12:56:19 Screenin g for malignan t neoplasm of rectum Completed 201312/03/2020 Screenin g for malignan t neoplasm s of the rectum;P ractice ID: 0001 Rosi Flanagan MD [address], [place], [address], [facility] 12:56:10 Adult health examinat ion Completed 201312/03/2020 ROUTINE MEDICAL EXAM;Rec orded Elsewher e: No Locat ion: [facility] S ource: EHR Hospitality Job Titles manuel: N Practi ce ID: 0001 Juan J lable Time: 10:00:00 AM MD [address], [place], [address], [facility] 12:55:49 Blood leukocyt e number above referenc e range [id number] Completed 201412/03/2020 Elevated white blood cell count, unspecif ied;Prac yoan ID: 0001 Rosi Flanagan MD [address], [place], [address], [facility] 12:55:54 Microsco pic hematuri a [id number] Completed 201412/03/2020 Other microsco pic hematuri a;Practi ce ID: 0001 Rosi Flanagan MD [address], [place], [address], [facility] 12:55:56 Evaluati on finding Completed 201412/03/2020 Hematuri a, unspecif ied;Prac yoan ID: 0001 Rosi Flanagan MD [address], [place], [address], [facility] 12:55:[address] Concept Completed 201412/03/2020 Encntr for general adult medical exam w/o abnormal findings ;Practic e ID: 0001 Rosi Flanagan MD [address], [place], [address], [facility] 12:56:[address] Concept Completed 201412/03/2020 Encntr for correctional substance abuse counselor exam (general ) (routine ) w abnormal findings ;Practic e ID: 0001 Rosi Flanagan MD [address], [place], [address], [facility] 12:56:[address] Concept Completed 201412/03/2020 Encntr for correctional substance abuse counselor exam (general ) (routine ) w/o abn findings ;Practic e ID: 0001 Rosi Flanagan MD [address], [place], [address], [facility] 12:56:[address] Concept Completed 201612/03/2020 Encounte r for general adult medical exam w abnormal findings ;Practic e ID: 0001 Rosi Flanagan MD [address], [place], [address], [facility] 12:56:03 Superfic ial pain on intercou rse 436703426 Active 2016 Superfic ial (introit al) dyspareu baylee;Marvin rded Elsewher e: No Locat ion: [facility] S ource: EHR Hospitality Job Titles manuel: N Aliza ce ID: 0001 Juan J lable Time: 01:30:00 PM Not Available [facility] 0 15:11:37 Body mass index 25-29 - overweig ht 004373923 Active 2016 Body mass index (BMI) 26.0-26. 9, adult;Re corded Elsewher e: No Locat ion: [facility] S ource: EHR Hospitality Job Titles manuel: N Yifanti ce ID: 0001 Juan J lable Time: 01:30:00 PM Not Available [facility] 0 15:11:37 Screenin g for malignan t neoplasm of cervix Completed 201812/03/2020 Encounte r for screenin g for malignan t neoplasm of cervix;P ractice ID: 0001 Rosi Flanagan MD [address], [place], [address], [facility] 1 12:56:06 Malignan t tumor of breast 978545117 Active 2021 stage 1, lumpecto my 10/22/22 Rosi Flanagan MD [address], [place], [address], [facility] 2 12:21:40 Postmeno pausal osteopen ia 394239084 Active 2022 Rosi Flanagan MD [address], [place], [address], [facility] 3 11:55:47 Problem Notes None recorded. Procedures Surgical History Date Name Laterality Status Provider Name and Address Organization Details Recorded Time 3 Date of Last Mammogram completed Megha May [facility] 08/02/2023 10:38:49 2 Most Recent Bone Density completed Shamika Rangel [facility] 08/02/2023 09:09:08 1 Date of Last Pap Smear completed Shamika Rangel [facility] 08/02/2023 09:08:08 0 colonoscopy completed [facility] 12/03/2020 12:46:25 9 Date of Last Colonoscopy completed [facility] 04/27/2022 10:35:48 8 colonoscopy completed [facility] 11/15/2020 09:19:30 6 Dilation and Curettage completed [facility] 11/15/2020 09:19:59 ligation of bilateral fallopian tubes completed [facility] 11/15/2020 09:19:44 Imaging Results None recorded. Procedure Notes None recorded. Medical Equipment None Reported. Allergies No known drug allergies Medications Name Sig Start Date Stop Date Status Note LastModified by Organization Details LastModified Time anastrozo le 1 mg tablet active Not Available Not Available Not Available clindamyc in HCl 300 mg capsule TAKE 1 CAPSULE BY MOUTH EVERY 6 HOURS FOR 7 DAYS 04/27 completed Not Available Not Available Not Available alendrona te 70 mg tablet TAKE 1 TABLET BY MOUTH EVERY WEEK active Not Available Not Available No t Available Aldair Low Dose Aspirin 81 mg tablet,de layed release take 1 tablet by oral route every day 09/03 completed Prescrib ed Elsewher e: Yes Loca tion: [facility] M odify By: lalit lojaunthelder DateTime : 10/12/20 12 08:45:00 AM Not Available Not Available Not Available oxycodone -acetamin ophen 5 mg-325 mg tablet 08/02 completed Not Available Not Available Not Available polymyxin B sulfate 10,000 unit-trim ethoprim 1 mg/mL eye drops INSTILL 1 DROP IN RIGHT EYE EVERY 3 HOURS WHILE AWAKE FOR 7 DAYS. DO NOT EXCEED 6 DOSES IN 24 HOURS 04/27 completed Not Available Not Available Not Available mupirocin 2 % topical ointment APPLY TOPICALL Y TO THE AFFECTED AREA THREE TIMES DAILY FOR 10 DAYS 08/31 completed Not Available Not Available Not Available Vitamin D2 1,250 mcg (50,000 unit) capsule take 1 capsule (18764SP ITS) by oral route every week 08/30 completed Prescrib ed Elsewher e: No Locat ion: [facility] odify By: rah pearce DateTime : 08/07/20 13 11:02:39 AM Not Available Not Available Not Available Vitamin D3 25 mcg (1,000 unit) tablet 11/15 completed Prescrib ed Elsewher e: Yes [facility] odify By: [email or web address] Encount er DateTime : 10/24/20 19 01:45:00 PM Not Available Not Available Not Available Vitamin D3 25 mcg (1,000 unit) capsule 10/18 completed Prescrib ed Elsewher e: Yes Loca tion: [facility] odify By: timmy carter DateTime : 08/30/20 14 10:00:00 AM Not Available Not Available Not Available Calcio [place] 500 mg tablet 11/15 completed Prescrib ed Elsewher e: Yes Loca tion: [facility] odify By: rah pearce DateTime : 07/20/20 12 10:30:00 AM Not Available Not Available Not Available Fish Oil 100 mg-160 mg-1,000 mg capsule 10/05 completed Prescrib ed Elsewher e: Yes Loca tion: [facility] odify By: lalit carter DateTime : 07/20/20 12 10:30:00 AM Not Available Not Available Not Available Vitals Date Recorded Body height Body mass index (BMI) Body weight Systolic And Diastolic Provider Name and Address Organization Details Last Updated DateTime 08/02/2023 144.78 cm 28.4 kg/m2 19022.04 g 133/76 mm[Hg] Megha May [facility] 08/02/2023 10:38:02 Date Recorded Body height Body mass index (BMI) Body weight Systolic And Diastolic Provider Name and Address Organization Details Last Updated DateTime 08/09/2024 144.78 cm 29.4 kg/m2 47747.56 g 144/77 mm[Hg] Eleni Appiahen [facility] 08/09/2024 14:57:20 Date Recorded Body height Body mass index (BMI) Body weight Systolic And Diastolic Systolic And Diastolic Provider Name and Address Organization Details Last Updated DateTime 08/31/2022 144.78 cm 30.9 kg/m2 59228.71 g 154/82 mm[Hg] 152/88 mm[Hg] Shamika [facility] 12:37:41 Date Recorded Body height Body mass index (BMI) Body weight Systolic And Diastolic Systolic And Diastolic Provider Name and Address Organization Details Last Updated DateTime 10/07/2022 144.78 cm 30.5 kg/m2 97451.52 g 173/81 mm[Hg] 177/62 mm[Hg] [facility] 12:02:04 Social History Question Answer Notes LastModified by Organizat ion Details LastModified Time Tobacco Smoking Status Never Smoker [facility] 12/03/2020 12:46:59 What Is Your Level Of Caffeine Consumption? Moderate Information not available 12/03/2020 In The 14 Days Before Symptom Onset, Have You Had Close Contact With A Laboratory-confirm ed COVID-19 While That Case Was Ill? No [email or web address] Information n ot available 08/09/2024 In The 14 Days Before Symptom Onset, Have You Had Close Contact With A Person Who Is Under Investigation For COVID-19 While That Person Was Ill? No [email or web address] Information not available 08/09/2024 Have You Been To An Area Known To Be High Risk For COVID-19? No [email or web address] Information not available 08/09/2024 How Many Days Of Moderate To Strenuous Exercise, Like A Brisk Walk, Did You Do In The Last 7 Days? 3 Information not available 12/03/2020 Have You Ever Been Counseled For Unhealthy Alcohol Use? No Information not available 12/03/2020 Has Tobacco Cessation Counseling Been Provided? No Information not available 12/03/2020 Sex: Unknown Functional Status Question Answer Note LastModified by Organizat ion Details LastModified Time Do you use any illicit or recreational drugs? No Information not available 12/03/2020 Do you or have you ever used any other forms of tobacco or nicotine? No Information not available 12/03/2020 What is your level of alcohol consumption? Occasional Information not available 12/03/2020 What is your exercise level? Occasional Information not available 12/03/2020 Mental Status None recorded. Family History Nothing Reported Notes:Mother: Cervical cance r Sister: Cancer, breast Medical History Condition Response Allergies (Food, seasonal, environmental ) N Other N Breast Cancer N Drug/Latex Allergies/Reactions N Blood Transfusion N Dermatologic Disorders N Lung Disease N Defects or Inherited Disease N Breast Problem N Gestational Diabetes N Hematologic disorders N Anesthesia Complications N History of STI N Deep Vein Thrombosis N Polycystic ovary syndrome N Anxiety Disorder N Autoimmune disease N Arthritis N Infertility N Polyps N Acid Reflux (GERD) N History of abnormal pap N Cancer N Stroke N Varicosities N Neurologic/Epilepsy N Endometriosis N High Cholesterol N Headaches N Fibromyalgia N Kidney Disease N Heart Problems N Kidney or Bladder Problems N Thyroid Problems N GI Problems N Eating Disorder N Anemia N Art (IVF or FET) N Psychiatric Illness N Ovarian Cancer N Diabetes N Pulmonary (TB, Asthma) N Hepatitis/Liver Disease N Eczema N Urinary Tract Infection N Abuse/Domestic Violence N Asthma N Trauma/Violence N Depression/ depression N Heart Disease N Pre-Eclampsia N Hypertension N Osteoporosis N Thrombophilias N Gynecological History Statement/Question Response Abnormal Pap N Date of Last Mammogram 06/17/2023 Date of Last Colonoscopy 11/08/2018 Most Recent Bone Density 07/16/2022 Date of Last Pap Smear 11/23/2020 Current Control Method Tubal Ligat ion LMP Unknown Obstetrics History GPAL:G 5 P 4 0 0 4 Type Value Full Term 4 Living 4 Total 5 Past Encounters Encounter ID Performer Location Encounter Start Date Encounter Closed Date Diagnosis/Indication Diagnosis SNOMED-CT Code Diagnosis ICD10 Code Diagnosis Note [id number] Rosi Flanagan MD [place] [address] [address] 11/15/2020 14:44:15 11/16/2020 18:26:22 Mass of left breast 4792491205 1803159 N63.20 [id number] MD [place] [address],[place] [address] 12/03/2020 12:30:00 12/03/2020 14:06:08 Gynecologic examination 57573182 Z01.419 Urge incon tinence of urine 03770388 N39.41 [id number] Rosi Flanagan MD [place] [address],[place] [address] 04/27/2022 10:21:56 04/27/2022 11:07:34 Urgent desire to urinate 76975028 R39.15 Urge incon tinence of urine 66623162 N39.41 Menopause present 451831 006 N95.1 [id number] Rosi Flanagan MD [place] [address],[place] [address] 08/02/2023 10:29:07 08/04/2023 10:08:21 Gynecologic examination 90089587 Z01.419 History of malignant neoplasm of breast 940340673 Z85.3 Painless r ectal bleeding 979378063 K62.5 Postmenopa usal osteopenia 375675608 M85.80 [id number] Rosi Flanagan MD [place] [address],[place] [address] 08/31/2022 12:24:10 08/31/2022 14:11:12 Postmenopausal osteoporosis 335549501 M81.0 [id number] Rosi Flanagan MD [place] [address] [place] [address] 10/07/2022 11:55:27 10/07/2022 12:23:17 Postmenopausal bleeding 36669205 N95.0 Painless r ectal bleeding 331418011 K62.5 [id number] Rosi Flanagan MD [place] [address] [place] [address] 10/08/2022 11:56:13 10/08/2022 12:31:47 Postmenopausal bleeding 39468332 N95.0 [id number] BELLA BENITEZ MD [place] [address] [place] [address] 08/09/2024 14:50:47 08/09/2024 15:22:19 Gynecologic examination 98800458 Z01.419 Well woman care- Cervical cancer screening: Pap smear not indicated- Breast cancer screening: mammogram completed- HPV immunizati on: does not qualify- STD testing: declined- hereditary cancer screening: does not qualify for testing Health Concerns Section Related Observation LastModified by Organization Detai ls LastModified Time None Recorded Concern Status LastModified by Organization Details LastModified Time None Recorded Advance Directives Directive None Recorded Payers Insurance Date Sequence Insurance Name Policy Number Policy Mcgill Covered Member ID Mcgill Member ID Guarantor Name 08/09/2024 2 [employer] (MEDICARE SUPPLEMENT) Jerrica Medinaend [id number] Jerrica Moya Richard 08/09/2024 1 [place] Jerrica Moya Richard [id number] Jerrica Moya Richard Notes Date Note Type Note Provider Name and Address Organization Details Recorded Time 08/31/2022 text/html Jerrica is here to discuss results of dexa scan. Showed T scores of -2.6 left femoral head, -2.4 right femoral head, and -2.2 spine. this is her first abnormal dexa. she takes vitamin D but not calcium. she has a breast biopsy on 09/23 at [facility]. Rosi Flanagan MD [address], [place], [address], [facility] 08/31/2022 13:51:46 10/07/2022 text/html Here for c/o possible PMB. Had quarter sized BRB when wiped after BM, unsure if it was vaginal or rectal. NO pain with it. no cramping. no further bleeding. colonscopy normal a few years ago. of note, just diagnosed a couple weeks ago with stage 1 breast cancer. has lumpectomy scheduled Oct 22. Rosi Flanagan MD [address], [place], [address], [facility] 10/07/2022 12:22:29 08/02/2023 text/html Patient is a 72 yo who presents for an annual exam. She had a lympectomy 10/22/22 and 10d radiation after. Is now on anastrozole. mammograms per [facility]. She had rectal bleeding episode 10/2022, never did see her PCP for this but no further episodes. last pap-2020 mammo-per [facility] colonoscopy- due 2023 dexa-07/2022 osteopenia menopause-yes sexually active-no seatbelts-y exercise-yes depression-denies domestic violence-denies tobacco-n concerns-n Rosi Flanagan MD [address], [place], [address], [facility] 08/09/2023 11:57:01 08/09/2024 text/html Presents today for her annual well-woman exam. Denies abnormal vaginal discharge. She is not sexually active. She has not noticed any changes or masses in her breasts. Up to date on mammograms. Menopausal, no PMB. No hx of abnormal pap smears. Does report some prolapse but not symptomatic. On anastrozole for hx of breast cancer, for the last 2 years. DEXA scan just performed with osteoporosis, on alendronate. Follows closely with oncology, last mammo 07/2024. BELLA BENITEZ MD [address], [place], [address], [facility] 08/09/2024 15:20:52 OBGyn Episode Ob Episode Information Episode Created Date Number of Fetuses Patient Bloodtype Patient rh Status Prepregnancy Weight lbs Domestic Partner Domestic Partner Phone Father Name Area Field Person Status 11/15/19 21 1 CLOSED Fetus Data First Name Last Name Admitted to NICU Weight (g) Sex Living Outcome Pediatric Complications Fetus ID Race Codes Race Delivery Type [id number] Vaginal Delivery Vicente Calculation Initial Vicente Date Initial Exam Date Initial Exam Provider Initial Ultrasound Date Last Menstrual Period Date Ultra Sound Weeks Gestation 0 Eighteen To Twenty Week Vicente Update Ultra Sound Date Fundal Height At Umbil Quickening Date Ultra Sound Latest Weeks Gestation Final Vicente Confirmed By Final Vicente Confirmed Date Final Vicente Date Ultra Sound Latest Days Gestation 0 0 Menstrual History Last Menstrual Date Menses Monthly On Bcp Conception Prior Menses Frequency Hcg Plus Date Menarche Onset Age Delivery Information Delivery Date Delivery Type Labor Anesthesia Weeks Gestation Incision Type Labor Labor Length Hrs Delivered By Post Complications Tubal Sterilization Discharge Date Comments 7 Discharge Information Feeding Method Contraceptive Method Maternal HG B and HCT Levels Ob Episode Information Episode Created Date Number of Fetuses Patient Bloodtype Patient rh Status Prepregnancy Weight lbs Domestic Partner Domestic Partner Phone Father Name Area Field Person Status 11/15/19 21 1 CLOSED Fetus Data First Name Last Name Admitted to NICU Weight (g) Sex Living Outcome Pediatric Complications Fetus ID Race Codes Race Delivery Type , Spontane ous [id number] Vicente Calculation Initial Vicente Date Initial Exam Date Initial Exam Provider Initial Ultrasound Date Last Menstrual Period Date Ultra Sound Weeks Gestation 0 Eighteen To Twenty Week Vicente Update Ultra Sound Date Fundal Height At Umbil Quickening Date Ultra Sound Latest Weeks Gestation Final Vicente Confirmed By Final Vicente Confirmed Date Final Vicente Date Ultra Sound Latest Days Gestation 0 0 Menstrual History Last Menstrual Date Menses Monthly On Bcp Conception Prior Menses Frequency Hcg Plus Date Menarche Onset Age Delivery Information Delivery Date Delivery Type Labor Anesthesia Weeks Gestation Incision Type Labor Labor Length Hrs Delivered By Post Complications Tubal Sterilization Discharge Date Comments 6 Discharge Information Feeding Method Contraceptive Method Maternal HG B and HCT Levels Ob Episode Information Episode Created Date Number of Fetuses Patient Bloodtype Patient rh Status Prepregnancy Weight lbs Domestic Partner Domestic Partner Phone Father Name Area Field Person Status 11/15/19 21 1 CLOSED Fetus Data First Name Last Name Admitted to NICU Weight (g) Sex Living Outcome Pediatric Complications Fetus ID Race Codes Race Delivery Type [id number] Vaginal Delivery Vicente Calculation Initial Vicente Date Initial Exam Date Initial Exam Provider Initial Ultrasound Date Last Menstrual Period Date Ultra Sound Weeks Gestation 0 Eighteen To Twenty Week Vicente Update Ultra Sound Date Fundal Height At Umbil Quickening Date Ultra Sound Latest Weeks Gestation Final Vicente Confirmed By Final Vicente Confirmed Date Final Vicente Date Ultra Sound Latest Days Gestation 0 0 Menstrual History Last Menstrual Date Menses Monthly On Bcp Conception Prior Menses Frequency Hcg Plus Date Menarche Onset Age Delivery Information Delivery Date Delivery Type Labor Anesthesia Weeks Gestation Incision Type Labor Labor Length Hrs Delivered By Post Complications Tubal Sterilization Discharge Date Comments 1 Discharge Information Feeding Method Contraceptive Method Maternal HG B and HCT Levels Ob Episode Information Episode Created Date Number of Fetuses Patient Bloodtype Patient rh Status Prepregnancy Weight lbs Domestic Partner Domestic Partner Phone Father Name Area Field Person Status 11/15/19 21 1 CLOSED Fetus Data First Name Last Name Admitted to NICU Weight (g) Sex Living Outcome Pediatric Complications Fetus ID Race Codes Race Delivery Type [id number] Vaginal Delivery Vicente Calculation Initial Vicente Date Initial Exam Date Initial Exam Provider Initial Ultrasound Date Last Menstrual Period Date Ultra Sound Weeks Gestation 0 Eighteen To Twenty Week Vicente Update Ultra Sound Date Fundal Height At Umbil Quickening Date Ultra Sound Latest Weeks Gestation Final Vicente Confirmed By Final Vicente Confirmed Date Final Vicente Date Ultra Sound Latest Days Gestation 0 0 Menstrual History Last Menstrual Date Menses Monthly On Bcp Conception Prior Menses Frequency Hcg Plus Date Menarche Onset Age Delivery Information Delivery Date Delivery Type Labor Anesthesia Weeks Gestation Incision Type Labor Labor Length Hrs Delivered By Post Complications Tubal Sterilization Discharge Date Comments 3 Discharge Information Feeding Method Contraceptive Method Maternal HG B and HCT Levels Ob Episode Information Episode Created Date Number of Fetuses Patient Bloodtype Patient rh Status Prepregnancy Weight lbs Domestic Partner Domestic Partner Phone Father Name Area Field Person Status 11/15/19 21 1 CLOSED Fetus Data First Name Last Name Admitted to NICU Weight (g) Sex Living Outcome Pediatric Complications Fetus ID Race Codes Race Delivery Type 6902 Vaginal Delivery Vicente Calculation Initial Vicente Date Initial Exam Date Initial Exam Provider Initial Ultrasound Date Last Menstrual Period Date Ultra Sound Weeks Gestation 0 Eighteen To Twenty Week Vicente Update Ultra Sound Date Fundal Height At Umbil Quickening Date Ultra Sound Latest Weeks Gestation Final Vicente Confirmed By Final Vicente Confirmed Date Final Vicente Date Ultra Sound Latest Days Gestation 0 0 Menstrual History Last Menstrual Date Menses Monthly On Bcp Conception Prior Menses Frequency Hcg Plus Date Menarche Onset Age Delivery Information Delivery Date Delivery Type Labor Anesthesia Weeks Gestation Incision Type Labor Labor Length Hrs Delivered By Post Complications Tubal Sterilization Discharge Date Comments 9 Discharge Information Feeding Method Contraceptive Method Maternal HG B and HCT Levels
--- OUTSIDE RECORDS SUMMARY | 2025-05-31 06:06 | XMS_ITS | Encounter Summary ---
Author Organization [facility] Healthcare Address [address] [place] [address] Care Team Providers Care Sleep Tech Name Role Phone Saurabh Izaguirre MD Primary Care Provider [phone] Reason for Visit * Diagnostic Imaging (Routine) - Closed Specialty Diagnoses / Procedures Referred By Jamie jenkins Referred To Contact Procedures Breast Imaging Screening Outside Reference Irina Aguiar NP Phone: tel: fax: Referral ID Status Reason Start Date Expiration Date Visits Re quested Visits Authorized [id number] Closed 09/04/2022 10/04/2023 1 1 Encounter Details Date Type Department Care Team (Late st Contact Info) Description 09/21/2018 Hospital Encounter [facility] [address] [place] [id number] Social History Tobacco Use Types Packs/Day Years [...] week 08/05/2023 How often do you attend [facility] or yazdanism services? More than 4 times per year 08/05/2023 Do you belong to any clubs o r organizations such as judaism groups, unions, fraternal or athletic groups, or [...] Recorded Patient Health Questionnaire-2 Score 0 08/05/2023 [facility] - Occupational [...] on file Legal Sex Female 3:26 AM RETAIL WIRELESS ASSOCIATE Gender Identity Not on file Sexual Orientation Not on file documented as of this encounter Functional Status * Audit-C Score Answer Date of Assessment Author 2 11/04/2022 7:20 AM RETAIL WIRELESS ASSOCIATE Monica Allen RN * Question Answer Date of Assessment Author Q1: How often do you have a drink containing alcohol? 2-4 times a month 11/04/2022 7:20 AM RETAIL WIRELESS ASSOCIATE Emily Allen RN Q2: How many drinks containing alcohol do you have on a typical day when you are drinking? 1 or 2 11/04/2022 7:20 AM RETAIL WIRELESS ASSOCIATE Emily Allen RN Q3: How often do you have six or more drinks on one occasion? Never 11/04/2022 7:20 AM RETAIL WIRELESS ASSOCIATE Emily Allen RN * Over the past [...] BREAST IMAGING MG SCREENING OUTSIDE REFERENCE Routine 09/21/2018 12:00 AM RETAIL WIRELESS ASSOCIATE documented in this encounter Results * Breast Imaging Screening Outside Reference (09/21/2018 12:00 AM RETAIL WIRELESS ASSOCIATE) Impressions [facility] - 09/04/2022 12:41 PM CDT These images are for Reference purposes only and have not been reviewed by [facility] Radiology. There will be no report generated by a [facility] Radiologist. Narrative [facility] - 09/04/2022 12:41 PM CDT EXAMINATION: Images For Reference Purposes Only us Irina Aguiar AIX SYSTEM ADMINISTRATOR IMG MAMMO PROCEDURES Fin al Result [facility] documented in this encounter Visit Diagnoses Not on filedocumented in this encounter Care Teams Sleep Tech Relationship Specialty Start Date End Date Saurabh Izaguirre MD [address] [place] [address] PCP - General 03/05/15 05/27/22 documented as of this encounter
--- OUTSIDE RECORDS SUMMARY | 2025-05-31 06:06 | XMS_ITS | Encounter Summary ---
Author Organization [facility] Healthcare Address [address] [place] [address] Care Team Providers Care Supervisor Parachute Manufacturing Name Role Phone Saurabh Izaguirre MD Primary Care Provider [phone] Reason for Visit * Diagnostic Imaging (Routine) - Closed Specialty Diagnoses / Procedures Referred By Jamie jenkins Referred To Contact Procedures Breast Imaging US Outside Reference Irina Aguiar NP Phone: tel: fax: Referral ID Status Reason Start Date Expiration Date Visits Re quested Visits Authorized [id number] Closed 09/04/2022 10/04/2023 1 1 Encounter Details Date Type Department Care Team (Late st Contact Info) Description 12/10/2020 12:05 AM RECYCLING ASSISTANT Hospital Encounter [facility] [address] [place] [id number] Social History Tobacco Use Types Packs/Day Years [...] week 08/05/2023 How often do you attend [facility] or advent services? More than 4 times per year 08/05/2023 Do you belong to any clubs o r organizations such as orthodoxy groups, unions, fraternal or athletic groups, or [...] Recorded Patient Health Questionnaire-2 Score 0 08/05/2023 [facility] - Occupational [...] place to sleep or slept in a penitentiary (including now)? No 08/05/2023 Comments Unknown Sex and Gender Information Value Date Recorded Sex Assigned at Not on file Legal Sex Female 3:26 AM RECYCLING ASSISTANT Gender Identity Not on file Sexual Orientation Not on file documented as of this encounter Functional Status * Audit-C Score Answer Date of Assessment Author 2 11/04/2022 7:20 AM RECYCLING ASSISTANT Monica Allen RN * Question Answer Date of Assessment Author Q1: How often do you have a drink containing alcohol? 2-4 times a month 11/04/2022 7:20 AM RECYCLING ASSISTANT Emily Allen RN Q2: How many drinks containing alcohol do you have on a typical day when you are drinking? 1 or 2 11/04/2022 7:20 AM RECYCLING ASSISTANT Emily Allen RN Q3: How often do you have six or more drinks on one occasion? Never 11/04/2022 7:20 AM RECYCLING ASSISTANT Emily Allen RN * Over the past [...] Priority Date/Time Associated Diagnosis Comments BREAST IMAGING US OUTSIDE REFERENCE Routine 12/10/2020 12:05 AM RECYCLING ASSISTANT documented in this encounter Results * Breast Imaging US Outside Reference (12/10/2020 12:05 AM RECYCLING ASSISTANT) Impressions [facility] - 09/04/2022 12:53 PM CDT These images are for Reference purposes only and have not been reviewed by [facility] Radiology. There will be no report generated by a [facility] Radiologist. Narrative [facility] - 09/04/2022 12:53 PM CDT EXAMINATION: Images For Reference Purposes Only us Irina Aguiar FULL TIME IMG MAMMO PROCEDURES Fin al Result [facility] documented in this encounter Visit Diagnoses Not on filedocumented in this encounter Care Teams Supervisor Parachute Manufacturing Relationship Specialty Start Date End Date Saurabh Izaguirre MD [address] [place] [address] PCP - General 03/05/15 05/27/22 documented as of this encounter
--- OUTSIDE RECORDS SUMMARY | 2025-05-31 06:06 | XMS_ITS | Clinical Summary ---
Author Organization [facility] [address] Address [address] [place] [address] Care Team Providers Care Waste Water Or Water Plant Operator Name Role Phone Niurka Byers MD Primary Care Provider [phone] Rosi Flanagan MD Unavailable [phone] Edward Medina MD Unavailable Janet Shaikh MD PhD Unavaila ble Areli Michel MD Unavailable [phone] Allergies No known active allergies Medications alendronate [...] breast 02/03/2023 Personal history of irradiation 02/03/2023 tank terminal gauger current use of aromatase inhibitor Malignant neoplasm of right female breast 2021 Cancer Staging:Pathologic stage from 11/04/2022: pT1b, pN0(sn), cM0, ER+, AR-, HER2- - Unsigned Overview (10/22/2022): Added automatically from request for surgery [id number] Abnormal mammogram 09/23/2022 Hyperlipidemia 03/05/2015 Overview (02/18/2017): Hyperlipidemia Encounters Date Type Department Care Team Description 03/15/2025 2:30 PM CDT Office Visit [facility] Radiation Oncology [address] [place] [phone] Areli Michel MD 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 breast of female, estrogen receptor positive (HCC) (Primary Dx) from Last 3 Months Immunizations Immunization Administration Dates Next Due Influenza, Quadrivalent, Spl it, Preservative Free, Intramuscular 11/18/2013 Influenza, Trivalent, IM (MDV) 09/05/2012 TD Preservative Free 08/13/2011,04/25/2002 ZOSTER LIVE 11/22/2012 Surgical History Surgery Date Site/Laterality Comments BREAST BIOPSY 09/23/2022 Right Medical History Medical History Date Comments Hx Other Medical vaginal deliver ies, pilonidal cyst surgery, hematu; Comments: [facility] 08/29/2014 - Overweight Family History Medical History Relation Name Comments Sudden Father Sudden ; Cervical cancer Mother Cancer, cerv ical; Uterine cancer Mother Ductal Carcinoma In-Situ Sister 1 Uterine cancer Sister 2 Relation Name Status Comments Father (Age 96) Mother Sister 1 Sister 2 Alive Social History Tobacco Use Types Packs/Day Years [...] often do you attend [facility] or tenriism services? More than 4 times per year 08/05/2023 Do you belong to any clubs o r organizations such as congregation groups, unions, fraternal or athletic groups, or [...] Recorded Patient Health Questionnaire-2 Score 0 08/05/2023 [facility] Occupat ional Health - Occupational Stress [...] place to sleep or slept in a long-term (including now)? No 08/05/2023 Comments Unknown Sex and Gender Information Value Date Recorded Sex Assigned at Not on file Legal Sex Female 3:26 AM LIQUID FLOOR AND WALL APPLIER Gender Identity Not on file Sexual Orientation Not on file Obstetrics History Para Term AB IAB SAB Ectopic Multiple Livin g Live Births 5 4 4 1 4 Date Outcome GA Total Labor Labor/2nd/3rd Weight Sex Type Anes PTL Ania A1 A5 Name Clin Term Term Term Term AB Comments Menses 12yo Menopause 56 (naturally) HRT 1-2 years Oral BC 3-4 years early 20s -hx breast bx Last Filed Vital Signs Vital Sign Reading [...] 02/15/2025 2:52 PM CDT Plan of Treatment Health Maintenance Due Date Last Done Comments Colon Cancer Screening-Colonoscopy 1950 Hepatitis C Screening 1950 Hepatitis B Screening 1969 Pneumococcal vaccine 65+ (1 of 2 - PCV) 1970 DTaP/Tdap/Td Vaccine (1 - Tdap) 08/14/2011 1, 04/25/2002 Zoster Vaccine (1 of 2) 01/17/2013 11/22/2012 Well Visit 65+ 2016 Covid-19 Vaccine (4 - 4-2 5 season) 2024 12/26/2021, 01/23/2021, 01/01/2021 Depression Screening 08/05/2024 08/05/2023 Breast Cancer Screening-Mammogram 06/22/2025 06/22/2024, 06/17/2023, 07/06/2022 Influenza Vaccine (#1) 2025 11/18/2013, 2011 Fall Risk Assessment 03/15/2026 03/15/2025, 03/17/2024, 09/16/2023, Additional history exists Osteoporosis Screening-Bone Density Scan 08/01/2026 08/01/2024 Medical Devices Implanted Type Area Syrup Maker Device Identifier Shelf Expiration Date Model / Serial / Lot [employer] Needle Localization Cushing Nitinol Stainless Steel J Curve L10cm Od20 Ga Breast Reposition 2 Part Stabilizer Wire Sterile Disposable [id number] - [id number] Implanted:Qty: 1 on 11/04/2022 at [facility] Wire [employer] [id number] 09/24/2025 [id number] / / [id number] Bard Peripheral Vascular Ultraclip Bard 17ga 10cm 2 Trigger Permanent Ultrasound [id number] - [id number] Implanted:Qty: 1 on 09/23/2022 at [facility] Right: Breast [employer] [id number] / / Procedures Procedure Name Priority Date/Time Associated Diagnosis Comments DEXA AXIAL SKELETON BONE DENSITY 1 OR MORE SITES Schedule Routine, Read Routine (OP Routine) 08/01/2024 10:14 AM CDT 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 breast of female, estrogen receptor positive (HCC) tank terminal gauger (current) use of aromatase inhibitors DIAGNOSTIC MAMMOGRAM [...] year old F with given history of: tank terminal gauger AI use Screening Hx of right breast cancer 2021 Hx of radiation therapy and currently takes anastrozole Post menopausal Syrup Maker/Model: GoodBelly (S/N [id number]) CLINICAL INFORMATION: Current height: 61 inches Maximum [...] Brendan Tello M.D. MF: MARIA Report ID: [id number] Reading Location: [place] [address] Procedure Note Brendan Tello MD - 08/01/2024 EXAM DESCRIPTION: DEXA AXIAL SKELETON BONE DENSITY 1 OR MORE SITES REASON FOR STUDY: 73 y/o year old F with given history of: Long termAI use Screening Hx of right breast cancer 2021 Hx of radiation therapy and currently takes anastrozole Post menopausal Syrup Maker/Model: GoodBelly (S/N [id number]) CLINICAL INFORMATION: Current height: 61 inches Maximum [...] see below follow up recommendations. [facility] of low bone mineral density may [...] Brendan Tello M.D. MF: MARIA Report ID: [id number] Reading Location: [id number] Edward Medina MD IMG DXA PROCEDURE S [...] SUPPLEMENT MEDICARE AETNA SENIOR SUPPLEMENT Care Teams Waste Water Or Water Plant Operator Relationship Specialty Start Date End Date Niurka Byers MD PCP - General Family Medicine 05/28/22 Rosi Flanagan MD Referring Physician Obstetrics and Gynecology 08/12/22 Edward Medina MD [address] [facility], [address] [address] Consulting Physician Medical Oncology 11/20/22 Janet Shaikh MD PhD [address] [place] [address] Surgeon Surgical Oncology 11/20/22 Areli Michel MD [address] [place] [address] Radiation Oncologist Radiation Oncology 12/10/22
--- OUTSIDE RECORDS SUMMARY | 2025-05-31 06:06 | XMS_ITS | Encounter Summary ---
Author Organization [facility] Address [address] [place] [address] Phone Care Team Providers Care Legal Internship Name Role Phone Niurka Byers MD Primary Care Provider [phone] Rosi Flanagan MD Unavailable [phone] Edward Medina MD Unavailable Janet Shaikh MD PhD Unavaila ble Areli Michel MD Unavailable [phone] Encounter Details Date Type Department Care Team (Latest Contact Info) Description 08/05/2022 Orders Only [facility] Scanning, Provider Social History Tobacco Use Types Packs/Day Years Used Date Smoking Tobacco: Never Alcohol Use Standard Drinks/Week Comments Yes 0 (1 standard drink = 0.6 oz pur e alcohol) Comments Unknown Sex and Gender Information Value Date Recorded Sex Assigned at Not on file Legal Sex Female 3:26 AM SALES AND LEASING CONSULTANT Gender Identity Not on file Sexual Orientation Not on file documented as of this encounter Plan of Treatment Not on file documented as of this encounter Procedures Procedure Name Priority Date/Time Associated Diagnosis Comments SCAN - RADIOLOGY/IMAGING 08/05/2022 documented in this encounter Results * SCAN - RADIOLOGY/IMAGING (08/05/2022) Anatomical Region Laterality Modality Other us Provider Scanning Final Result documented in this encounter Visit Diagnoses Not on filedocumented in this encounter Care Teams Legal Internship Relationship Specialty Start Date End Date Niurka Byers MD PCP - General Family Medicine 05/28/22 Rosi Flanagan MD Referring Physician Obstetrics and Gynecology 08/12/22 Edward Medina MD [address] [facility], [address] [address] Consulting Physician Medical Oncology 11/20/22 Janet Shaikh MD PhD [address] [place] [address] Surgeon Surgical Oncology 11/20/22 Areli Michel MD [address] [place] [address] Radiation Oncologist Radiation Oncology 12/10/22 documented as of this encounter
--- OUTSIDE RECORDS SUMMARY | 2025-05-31 06:06 | XMS_ITS | Encounter Summary ---
Author Organization [facility] Healthcare Address [address] [place] [address] Care Team Providers Care Library Page Name Role Phone Saurabh Izaguirre MD Primary Care Provider [phone] Reason for Visit * Diagnostic Imaging (Routine) - Closed Specialty Diagnoses / Procedures Referred By Jamie jenkins Referred To Contact Procedures Breast Imaging Screening Outside Reference Irina Aguiar NP Phone: tel: fax: Referral ID Status Reason Start Date Expiration Date Visits Re quested Visits Authorized [id number] Closed 09/04/2022 10/04/2023 1 1 Encounter Details Date Type Department Care Team (Late st Contact Info) Description 02/26/2015 Hospital Encounter [facility] [address] [place] [id number] Social History Tobacco Use Types Packs/Day Years [...] week 08/05/2023 How often do you attend [facility] or christianity services? More than 4 times per year [...] Recorded Patient Health Questionnaire-2 Score 0 08/05/2023 [facility] Occupat ional Health - Occupational [...] place to sleep or slept in a nursing home (including now)? No 08/05/2023 Comments Unknown Sex and Gender Information Value Date Recorded Sex Assigned at Not on file Legal Sex Female 3:26 AM EQUIPMENT CLEANER AND TESTER Gender Identity Not on file Sexual Orientation Not on file documented as of this encounter Functional Status * Audit-C Score Answer Date of Assessment Author 2 11/04/2022 7:20 AM EQUIPMENT CLEANER AND TESTER Monica Allen RN * Question Answer Date of Assessment Author Q1: How often do you have a drink containing alcohol? 2-4 times a month 11/04/2022 7:20 AM EQUIPMENT CLEANER AND TESTER Emily Allen RN Q2: How many drinks containing alcohol do you have on a typical day when you are drinking? 1 or 2 11/04/2022 7:20 AM EQUIPMENT CLEANER AND TESTER Emily Allen RN Q3: How often do you have six or more drinks on one occasion? Never 11/04/2022 7:20 AM EQUIPMENT CLEANER AND TESTER Emily Allen RN * Over the past [...] BREAST IMAGING MG SCREENING OUTSIDE REFERENCE Routine 02/26/2015 12:00 AM CDT documented in this encounter Results * Breast Imaging Screening Outside Reference (02/26/2015 12:00 AM CDT) Impressions [facility] - 09/04/2022 12:40 PM CDT These images are for Reference purposes only and have not been reviewed by [facility] Radiology. There will be no report generated by a [facility] Radiologist. Narrative [facility] - 09/04/2022 12:40 PM CDT EXAMINATION: Images For Reference Purposes Only us Irina Aguiar EDI PROGRAMMER IMG MAMMO PROCEDURES Fin al Result [facility] documented in this encounter Visit Diagnoses Not on filedocumented in this encounter Care Teams Library Page Relationship Specialty Start Date End Date Saurabh Izaguirre MD [address] [place] [address] PCP - General 08/29/14 03/04/15 documented as of this encounter
--- OUTSIDE RECORDS SUMMARY | 2025-05-31 06:06 | XMS_ITS | Encounter Summary ---
Author Organization [facility] Address [address] [place] [address] Phone Care Team Providers Care Wash Mill Operator Name Role Phone Niurka Byers MD Primary Care Provider [phone] Rosi Flanagan MD Unavailable [phone] Edward Medina MD Unavailable Janet Shaikh MD PhD Unavaila ble Areli Michel MD Unavailable [phone] Encounter Details Date Type Department Care Team (Latest Contact Info) Description 08/11/2022 Orders Only [facility] Scanning, Provider Social History Tobacco Use Types Packs/Day Years Used Date Smoking Tobacco: Never Alcohol Use Standard Drinks/Week Comments Yes 0 (1 standard drink = 0.6 oz pur e alcohol) Comments Unknown Sex and Gender Information Value Date Recorded Sex Assigned at Not on file Legal Sex Female 3:26 AM AIR INTELLIGENCE OFFICER Gender Identity Not on file Sexual Orientation Not on file documented as of this encounter Plan of Treatment Not on file documented as of this encounter Procedures Procedure Name Priority Date/Time Associated Diagnosis Comments SCAN - RADIOLOGY/IMAGING 08/11/2022 documented in this encounter Results * SCAN - RADIOLOGY/IMAGING (08/11/2022) Anatomical Region Laterality Modality Other us Provider Scanning Final Result documented in this encounter Visit Diagnoses Not on filedocumented in this encounter Care Teams Wash Mill Operator Relationship Specialty Start Date End Date Niurka Byers MD PCP - General Family Medicine 05/28/22 Rosi Flanagan MD Referring Physician Obstetrics and Gynecology 08/12/22 Edward Medina MD [address] [facility], [address] [address] Consulting Physician Medical Oncology 11/20/22 Janet Shaikh MD PhD [address] [place] [address] Surgeon Surgical Oncology 11/20/22 Areli Michel MD [address] [place] [address] Radiation Oncologist Radiation Oncology 12/10/22 documented as of this encounter
--- OUTSIDE RECORDS SUMMARY | 2025-05-31 06:06 | XMS_ITS ---
Author Organization [facility] [address] Address [address] [place] [id number] Care Team Providers Care Physician'S Aide Name Role Phone Niurka Byers MD Primary Care Provider [phone] Rosi Flanagan MD Unavailable [phone] Edward Medina MD Unavailable Janet Shaikh MD PhD Unavaila ble Areli Michel MD Unavailable [phone] Active Problems Problem Noted Date Diagnosed Date Encounter for follow-up exam ination after completed treatment for malignant neoplasm 02/03/2023 Personal history of malignant neoplasm of breast 02/03/2023 Personal history of irradiation 02/03/2023 intermediate designer current use of aromatase inhibitor Malignant neoplasm of right female breast 2021 Cancer Staging:Pathologic stage from 11/04/2022: pT1b, pN0(sn), cM0, ER+, [place]-, HER2- - Unsigned Overview (10/22/2022): Added automatically from request for surgery [id number] Abnormal mammogram 09/23/2022 Hyperlipidemia 03/05/2015 Overview (02/18/2017): Hyperlipidemia Current Treatment and Therapy Plans No current plan information found. Past Treatment and Therapy Plans No past plan information found. Radiation Treatments * Course [id number]/07/2023 - 01/22/2023 Treatment Period Energy Fraction Dose Fractions Total Dose Plans Planned RT BREAST BST 01/14/2023 - 01/22/2023 200 5 / 1,000 RT BREAST 01/07/2023 - 01/13/2023 520 5 / 2,600 Reference Points Delivered RT BOOST 202201/14/2023 - 01/22/2023 1,000 DPV_RtBreast 01/07/2023 - 01/13/2023 2,600
[2025-05-31 06:24] VITALS: BMI 25.9
[2025-05-31 06:25] VITALS: BP 170/76; PULSE 78; RESP 16; TEMP 36.7; O2SAT 98
[2025-05-31] MEDS: ACETAMINOPHEN 500 MG TABLET 1000 MG PO (06:46)
[2025-05-31] MEDS: LACTATED RINGERS 1,000 ML 30 ML IV CONT (06:46)
--- NOTE | 2025-05-31 06:49 | P.PNAN_ITS ---
Anes - Initial Pre Proc Eval Procedure: Operation Date: 05/31/25 07:30 Proposed Procedures p A-1 Marino Release Right Index and Middle Finger - Maurisio Corona MD Date/Time: 05/31/25 06:49 Surgeon: Maurisio Corona MD Pre Op Diagnosis: Right Index and Middle Trigger Finger Patient Data Age: 74 Gender: F Height: 1.55 m Weight: 62.2 kg Last Vital Signs Temp 98.1 F 05/31/25 06:25 Pulse 78 05/31/25 06:25 Resp 16 05/31/25 06:25 BP 170/76 H 05/31/25 06:25 Pulse Ox 98 05/31/25 06:25 O2 Del Method Room Air 05/31/25 06:25 Allergies Allergy/AdvReac Type Severity Reaction Status Date / Time vaccine adjuvant system, Allergy Intermediate Swelling Verified 05/31/25 06:16 AS01B liposomal varicella-zoster virus Allergy Intermediate Swelling Verified 05/31/25 06:16 glycoprotein E, recombinant Home Medications ?Medication ?Instructions ?Recorded ?Confirmed ?Type cholecalciferol (vitamin D3) 25 25 mcg PO DAILY #30 caps 11/10/21 05/31/25 Rx mcg (1,000 unit) capsule anastrozole 1 mg tablet 1 mg PO DAILY 05/23/25 05/31/25 History multivitamin (One Daily 1 tablet PO DAILY 05/23/25 05/31/25 History Multivitamin tablet) Patient hx anesthesia problems: none Family hx anesthesia problems: none Results Review: All pre-operative results and documents have been reviewed as part of the pre- operative evaluation. [facility] Past Medical History Medical History (Updated 03/26/25 @ 13:22 by Maurisio Corona MD) Breast cancer Prehypertension Mixed hyperlipidemia Vitamin D deficiency FH: glaucoma Family History Family History Mother Family history of malignant neoplasm of cervix Family history of malignant neoplasm of ovary Social History Social History Smoking status: Never smoker Second hand tobacco smoke exposure: No Alcohol intake: current Alcohol use details: wine, occasionally; seldom Substance use: never Substance use type: does not use Do You Feel Safe in your Home?: Yes Lack of Transportation: No Lack of Food: Never True Current Housing: I Have Housing Concerned About Future Housing: No Difficulty Paying Gas/Electric Bills: No Difficulty Paying for Meds: No Currently Unemployed: No Education: Master's Degree or Higher Difficulty w/ Childcare or Family Care: No Anes - Eval Final PreProcedure Day of Procedure 05/31/25 06:49 Heart: regular rate and rhythm Lungs: clear to auscultation Airway: Mallampati scale class IV Neurological: alert and oriented Last oral intake: >/= 8 hours ASA classification: II Anesthetic plan: proceed Anesthesia type and monitoring: monitored anesthesia care Results Review: All pre-operative results and documents have been reviewed as part of the pre- operative evaluation. Informed Consent: The patient's anesthetic plan and its attendant risks and benefits were discussed with the patient/family/POA. Questions were solicited and answers provided to the satisfaction of the patient/family/POA.
--- NOTE | 2025-05-31 06:58 | P.HP_ITS ---
History of Present Illness History of Present Illness Chief complaint: Right Index and Middle Trigger Finger Narrative: Patient seen and examined in pre-operative holding area. No interval change in medical history or symptoms. Patient recalls previous discussion of benefits and alternatives to procedure. Continues to desire to proceed with right index and middle finger a1 zofia release . Reviewed procedure, post-op expectations and risks including but not limited to bleeding, infection, injury to tendon /nerve/vessel, decreased hand function, stiffness, RSD, no change or worsening of symptoms. I discussed the possible use of assistants and their participation in the case. Patient stated understanding and signed the consent form wishing to proceed. Review of Systems Review of Systems: All systems reviewed & are unremarkable except as noted in HPI and below PMFSH Past Medical History Medical History (Updated 03/26/25 @ 13:22 by Maurisio Corona MD) Breast cancer Prehypertension Mixed hyperlipidemia Vitamin D deficiency FH: glaucoma Family History Family History Mother Family history of malignant neoplasm of cervix Family history of malignant neoplasm of ovary Social History Social History Smoking status: Never smoker Second hand tobacco smoke exposure: No Alcohol intake: current Alcohol use details: wine, occasionally; seldom Substance use: never Substance use type: does not use Do You Feel Safe in your Home?: Yes Lack of Transportation: No Lack of Food: Never True Current Housing: I Have Housing Concerned About Future Housing: No Difficulty Paying Gas/Electric Bills: No Difficulty Paying for Meds: No Currently Unemployed: No Education: Master's Degree or Higher Difficulty w/ Childcare or Family Care: No Meds Home Medications and Allergies Home Medications ?Medication ?Instructions ?Recorded ?Confirmed ?Type cholecalciferol (vitamin D3) 25 25 mcg PO DAILY #30 caps 11/10/21 05/31/25 Rx mcg (1,000 unit) capsule anastrozole 1 mg tablet 1 mg PO DAILY 05/23/25 05/31/25 History multivitamin (One Daily 1 tablet PO DAILY 05/23/25 05/31/25 History Multivitamin tablet) Allergies Allergy/AdvReac Type Severity Reaction Status Date / Time vaccine adjuvant system, Allergy Intermediate Swelling Verified 05/31/25 06:16 AS01B liposomal varicella-zoster virus Allergy Intermediate Swelling Verified 05/31/25 06:16 glycoprotein E, recombinant Vital Signs Vital Signs - 24 hr 05/31/25 06:25 Temperature 36.7 C Pulse Rate 78 Respiratory Rate 16 Blood Pressure 170/76 H Pulse Oximetry 98 Oxygen Delivery Room Air Exam Narrative: unchanged Assessment and Plan Assessment and plan (1) Trigger finger, right index finger: Code(s): M65.321 - Trigger finger, right index finger Status: Acute Assessment and Plan: cont as above (2) Trigger finger, left middle finger: Code(s): M65.332 - Trigger finger, left middle finger Status: Acute
--- NOTE | 2025-05-31 06:59 | P.OP_ITS ---
Procedure Note - Detailed Date of Procedure 05/31/25 Pre-op Diagnosis Right Index and Middle Trigger Finger Post-op Diagnosis Same Procedure Performed right index and middle finger a1 zofia release Surgeon Maurisio Corona MD [employer] Etcher damien redding pa-c Anesthesia MAC Description of Procedure INFORMED CONSENT: The patient was seen and examined and marked in the pre-op area.? The patient signed the consent form. PROCEDURE IN DETAIL:The patient taken back to OR on the stretcher in supine position. Time out performed with anesthesia, surgeon and staff agreeing on patient's name site and surgery to be performed SCDs were placed on the lower extremities and inflated. A tourniquet was placed on {right} upper extremity and antibiotics given IV After anesthesia administered sedation I injected {6}cc 1%lido and 0.5% marcaine plain at the operative site The?{right upper extremity}?was prepped and draped in sterile fashion the??{right upper extremity} was? exsanguinated with Esmarch bandage and tourniquet inflated to 250mmHg I proceeded with making a longitudinal incision over the right index finger A1 zofia through skin and dermis with a 15 blade scalpel. Littler scissors were used to spread through subcutaneous tissue down to the A1 zofia. The A1 zofia was identified and initially incised with the 15 blade scalpel. Littler scissors were used to spread above and below it proximally and distally and completed the transection entirely. Ragnell retractor was used withdrawal the FDS and FDP tendons for inspection. The tendons were free of masses and synovitis and gliding smoothly in the sheath without triggering or crepitus. I irrigated with normal saline and closed with 4-0 chromic. Next, I proceeded with making a longitudinal incision over the right middle finger A1 zofia through skin and dermis with a 15 blade scalpel. Littler scissors were used to spread through subcutaneous tissue down to the A1 zofia. The A1 zofia was identified and initially incised with the 15 blade scalpel. Littler scissors were used to spread above and below it proximally and distally and completed the transection entirely. Ragnell retractor was used withdrawal the FDS and FDP tendons for inspection. The tendons were free of masses and synovitis and gliding smoothly in the sheath without triggering or crepitus. I irrigated with normal saline and closed with 4-0 chromic. A dressing of xeroform, 4x4, edmund, and an iglesia bandage was applied after the tourniquet was let down noting the hand was warm and well perfused. The patient was then awaken from anesthesia and transferred to the recovery room in stable condition.? Complications - none EBL- 0cc Disposition - home in stable condition Damien Redding PA-C was essential for positioning, retraction, closure and dressing placement [facility] [place] Surgery - Charge Forward: Surgery Billing ([id number] same for damien adding )
[2025-05-31] MEDS: ceFAZolin SODIUM 2 GM/20 ML SW SYRINGE IV PUSH (07:28)
[2025-05-31] MEDS: LIDOCAINE 1% LOCAL INJ 20 ML VIAL 2.5 ML INFILTRATE (07:33)
[2025-05-31] MEDS: BUPivacaine HCL 0.5% 10 ML AMP INFILTRATE (07:34)
[2025-05-31 07:50] VITALS: BP 105/69; PULSE 69; RESP 14; O2SAT 97
--- NOTE | 2025-05-31 08:01 | WPDANESPN ---
Anes - Prog Note Post-Op Date/Time: 05/31/25 08:01 Vital Signs: Last Vital Signs Temp 98.1 F 05/31/25 06:25 Pulse 69 05/31/25 07:50 Resp 14 05/31/25 07:50 BP 105/69 05/31/25 07:50 Pulse Ox 97 05/31/25 07:50 O2 Del Method Room Air 05/31/25 07:50 Pain Score (VAS): no Patient Feedback: Patient satisfied with anesthetic care.
[2025-05-31 08:05] VITALS: BP 108/58; PULSE 65; RESP 16; O2SAT 98
[2025-05-31 08:20] VITALS: BP 118/56; PULSE 73; RESP 16; O2SAT 97
== END 2025-05-31 08:28 | disposition home or self-care (01) ==
PROVIDERS: PCP Family Medicine; Visit Provider Plastic Surgery
PROC: (CPT 26055; principal; 2025-05-31 07:30)
DX: M65.321 Trigger finger, right index finger (principal); M65.331 Trigger finger, right middle finger
CPT/HCPCS: 26055 ×2